=== PATIENT | male | born 1950 | race Caucasian/White ===

== ENCOUNTER 2023-01-06 07:06 | Outpatient (CLI) | payer OTHER, SELFPAY ==
--- NOTE | 2023-01-06 07:15 | CRLHL7_ITS ---
For Patients: As a result of the Century Cures Act, medical imaging exams and procedure reports are released immediately into your electronic medical record. You may view this report before your referring provider. If you have questions, please contact your health care provider. Indication: MENINGIOMA BRAIN F/U PITUITARY MENINGIOMA POST RADIATION Technique: High-resolution sagittal and coronal, pre and postcontrast T1 weighted sequences through the pituitary gland, axial diffusion, T2 FLAIR sequences are provided. 15 ml Dotarem gadolinium based IV contrast was administered. Comparison: 01/10/22 MRI Findings: Mild generalized parenchymal volume loss. The midline structures are centrally located with no evidence of shift. There are no suspicious intra or extra-axial fluid collections. No region of restricted diffusion. Stable T1 isointense T2 heterogeneous enhancing mass in the pituitary sella, extending along the tuberculum sella measuring up to 3.3 cm AP x 1.6 cm craniocaudal x 2.9 cm TR with likely invasion of the cavernous sinus. The pituitary gland cannot be discretely distinguished from the tumor. No evidence of ICA stenosis. Minimal left suprasellar extension. The infundibulum is midline. No mass effect on the optic chiasm. Expected flow voids within the cavernous carotids and basilar artery. Impression: 1. 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 No optic chiasm impingement. No definite encasement of or narrowing of the ICAs. 2. Stable mild parenchymal volume loss. No acute intracranial abnormality. Dictated by Bakari Stein MD @ 01/06/2023 11:35:44 AM (Electronically Signed)
== END 2023-01-06 07:07 | disposition home or self-care (01) ==
LOC: MRI 07:10
PROVIDERS: Visit Provider Physician Assistant
DX: D32.0 Benign neoplasm of cerebral meninges (principal)
CPT/HCPCS: 70553; A9575

== ENCOUNTER 2024-01-09 07:27 | Outpatient (CLI) | payer MEDICARE, SELFPAY ==
--- NOTE | 2024-01-09 07:15 | MR_ITS ---
Final Report Patient: SERAFIN PRAJAPATI Facility:?[facility] Patient ID:?[id number] Site Patient ID:?[id number]. Site :?[id number] Study:?MRI Head W/ and W/O Cont 20 CC DOATERM-01/09/2024 10:10:39 AM Ordering Physician:?TIMUR LEVINE Final Report: INDICATION: MENINGEOMA OF BRAIN Indication: Meningioma brain Technique: Multiplanar multisequence MRI brain obtained pre and postcontrast. A total of 20 mL Dotarem was administered IV for the exam. Comparison: MRI brain 01/06/2023, 01/10/2022 Findings: Overall stable appearance of the enhancing extra-axial lesion expanding the sella, obscuring the pituitary gland, and extending along the tuberculum sellae and planum sphenoidale, given differences in technique. Again noted is likely cavernous sinus invasion, better appreciated on previous dedicated pituitary protocol MRI exams. Overall appearance is not significantly changed over the interval. No acute/subacute ischemia, intracranial hemorrhage, or abnormal extra-axial fluid collection. No midline shift, hydrocephalus, or herniation. Mild generalized volume loss. Major intracranial vasculature is unremarkable for technique. Normal bone marrow signal. Mild mucosal thickening along the inferior maxillary sinuses and anterior ethmoid air cells. No significant mastoid effusion. Bilateral lens implants. Impression: 1. Overall stable appearance of the sella/tuberculum sellae meningioma. 2. No acute intracranial abnormality or significant interval change relative to 01/06/2023. 3. Mild generalized cerebral volume loss. Dictated by: Lacey Lombardi MD @ 01/13/2024 06:15:27 (Electronic Signature)
--- OUTSIDE RECORDS SUMMARY | 2024-01-09 07:34 | XMS_ITS | Continuity of Care Document ---
Author Name Unknown Organization [facility] Address [address] [place] [address] Phone Care Team Providers Care Tabular Typist Name Role Phone Staci Denise MD Unavailable Unavailable Allergies, Adverse Reactions, Alerts Substance Reaction Status Criticality No Known Allergies Active No Inform ation Medications Medication Instructions Dosage Effective Dates (start - stop) Status Comments LEVOTHYROXINE SODIUM (unknown strength) Not Available - Active METFORMIN HCL (unknown strength) Not Available - Active LISINOPRIL (unknown strength) Not Available - Active GABAPENTIN (unknown strength) Not Available - Active CITALOPRAM HBR (unknown strength) Not Available - Active ACETAMINOPHEN (unknown strength) Not Available - Active GLIPIZIDE (unknown strength) Not Available - Active Procedures Procedure Date Postop Followup Visit Lami For Excision Of Lesion, Lumbar (Cys t, Lipoma etc.) - PA Lami For Excision Of Lesion, Lumbar (Cys t, Lipoma etc.) Operating Microscope Followup Hospital Care, [facility] 2022 Office/Outpatient Visit,[facility] 2022 Advance Directives Directive Yes / No Effective Date File Name No Information Encounters Encounter Description Practice Location Reason(s) For Visit Diagnoses Date Provider Providers Copied on Encounter [facility], [address], [place], [id number], [place] tel:[phone] [facility] [place] No Information 3 Camelia Small. [facility], [address] [place] [address] [address], [place], [address], [place]. tel:[phone] [facility], [address], [place], [id number], [place] tel:[phone] [facility] - [place] Arthrodesis status 3 Camelia Small. [facility], [address], [place], [address], [place]. [phone] Referring Provider: Ricci Ramses V, [facility] [address], [place], [address]. tel:[phone] [facility], [address], [place], [place], [id number], [place] tel:[phone] [facility] No Information Sep-0 3 Roaring Riveremil Duran. [facility], [address], [place], [address], [place]. tel:[phone] Referring Provider: Ricci Ramses V, [facility] [address], [place], [address]. tel:[phone] [facility], [address], [place], [place], [id number], [place] tel:[phone] [facility] No Information Sep-0 3 Camelia Small. [facility], [address], [place], [address], [place]. [phone] Referring Provider: Ricci Ramses V, [facility] [address], [place], [address]. tel:[phone] Followup Hospital Care, Moderate [facility], [address], [place], [place], [id number], [place] tel:[phone] [facility] No Information Sep-0 3 Aydee Gomez. [facility], [address], [address], [place], [address], [place]. [phone] Referring Provider: Ricci Ramses V, [facility] [address], [place], [address]. 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 [facility], [address] [place] [address], [address], [place], [address], [place]. tel:[phone] Referring Provider: Ricci Pearce V, [facility] [address] [facility] [address], [place], [address]. tel:[phone] Family History Family Member Type Diagnosis Age At Onset No Information Payers Payer name Insurance type Covered green party ID Authoriza tilavinia(s) [employer] Medicare Gold Choice Mark [id number] Social History Type Description Quantity Date Captured Comments Alcohol Use Details Unknown Caffeine Use Details Unknown Tobacco Use Status No Information Smoking Status No Information Sex Male Chief Complaint And Reason For Visit No Information Reason For Referral Reason For Referral No Information History Of Present Illness Encounter Date Complaint History Of Prese nt Illness No Information Functional Status Date Functional Assessmen t No Information Instructions Date Instruction Additional Infor mation No Information Assessments Type Assessment Date No Information Patient Care Teams Name Effective Dates (start - stop) Status Members No Information
--- OUTSIDE RECORDS SUMMARY | 2024-01-09 07:35 | XMS_ITS | Encounter Summary ---
Author Name Unknown Organization [facility] Address [address] [place] [address] Care Team Providers Care Advertising Solicitor Name Role Phone Elsewhere, Pcp Primary Care Provider Unavailabl e Reason for Visit * Reason Comments Med Refill Encounter Details Date Type Department Care Team (Late st Contact Info) Description 12/09/2023 Refill Division of Endocrinology in [place], [place] [address] [place] [phone] Luly Melara M.B., B.Ch. [address] [place] [phone] Med Refill Social History Tobacco Use Types Packs/Day Years Used Date Smoking Tobacco: Former Cigarettes 0 12 0 11/24/1970 - 11/24/1982 Pipe Smokeless Tobacco: Never Alcohol Use Standard Drinks/Week Comments Yes 3 (1 standard drink = 0.6 oz pur e alcohol) Humiliation, Afraid, Rape, and Kick questionnair e Answer Date Recorded Within the last year, have y ou been afraid of your partner or ex-partner? No 10/11/2022 Within the last year, have y ou been humiliated or emotionally abused in other ways by your partner or ex-partner? No Within the last year, have y ou been kicked, hit, slapped, or otherwise physically hurt by your partner or ex-partner? No 10/11/2022 Within the last year, have y ou been raped or forced to have any kind of sexual activity by your partner or ex-partner? No 10/11/2022 Social Connection and Isolat ion Panel [NHANES] Answer Date Recorded In a typical week, how many times do you talk on the phone with family, friends, or neighbors? More than three times a week 10/11/2022 How often do you get togethe r with friends or relatives? Once a week 10/11/2022 How often do you attend chur or lutheran services? Never 10/11/2022 Do you belong to any clubs o r organizations such as scientologist groups, unions, fraternal or athletic groups, or school groups? Yes 10/11/2022 How often do you attend meet ings of the clubs or organizations you belong to? More than 4 times per year 10/11/2022 Are you , , di vorced, , never , or living with a partner? 10/11/2022 AUDIT-C Answer Date Recorded Q1: How often do you have a drink containing alc ohol? 2-4 times a month 10/11/2022 Q2: How many drinks containi ng alcohol do you have on a typical day when you are drinking? 1 or 2 10/11/2022 Q3: How often do you have si x or more drinks on one occasion? Never 10/11/2022 Overall Financial Resource Strain (CARDIA) Answe r Date Recorded How hard is it for you to pa y for the very basics like food, housing, medical care, and heating? Not hard at all 10/11/2022 [facility] - Occupational Stress Questionnaire Answer Date Recorded Do you feel stress - tense, restless, nervous, or anxious, or unable to sleep at night because your mind is troubled all the time - these days? Not at all 10/11/2022 Exercise Vital Sign Answer Date Recorde d On average, how many days pe r week do you engage in moderate to strenuous exercise (like a brisk walk)? 2 days 10/11/2022 On average, how many minutes do you engage in exercise at this level? 20 min 10/11/2022 Hunger Vital Sign Answer Date Recorded Within the past 12 months, y ou worried that your food would run out before you got the money to buy more. Never true 11/18/20 22 Within the past 12 months, t he food you bought just didn't last and you didn't have money to get more. Never true 10/11/2022 PRAPARE - Transportation Answer Date Re corded In the past 12 months, has l ack of transportation kept you from medical appointments or from getting medications? No 09/24 In the past 12 months, has l ack of transportation kept you from meetings, work, or from getting things needed for daily living? No 10/11/2022 Housing Stability Vital Sign Answer Bon e Recorded In the last 12 months, was t here a time when you were not able to pay the mortgage or rent on time? No 10/11/2022 In the last 12 months, how many places have you lived? 1 10/11/2022 In the last 12 months, was t here a time when you did not have a steady place to sleep or slept in a [place] [facility] [place] (including now)? No 10/11/2022 Nutrition Answer Date Recorded Nutrition: EVOO Fat Source Yes 10/11 On average, how many serving s of fruits and vegetables do you eat per day (serving size is equal to 1 cup or approximately the size of a tennis ball)? 0-1 10/11/2022 Dental Answer Date Recorded Dental: Regular Dentist Yes 01/10/20 Employment Answer Date Recorded Employment status Retired 10/11/2022 Education Answer Date Recorded What is the highest level of school you have completed or the highest degree you have received? Associate degree: occupational, technical, or vocational program 01/02/2020 Sex and Gender Information Value Date Recorded Sex Assigned at Male 05/13/2018 7:32 PM CDT Gender Identity Male 05/13/2018 7:32 PM CDT Sexual Orientation Straight 05/13/2018 7: 32 PM CDT documented as of this encounter Plan of Treatment Upcoming Encounters Date Type Department Care Team (Latest Contact Info) Description 01/12/2024 10:00 AM PROVIDER SCRIBE Clinical Communication Virtual Review in [place], [place] [address] [place] [address] 01/15/2024 11:30 AM PROVIDER SCRIBE Appointment Department of Radiation Oncology in [address] [phone] Donovan Betts M.D. [address] [place] [phone] documented as of this encounter Visit Diagnoses Not on filedocumented in this encounter Additional Health Concerns Assessment Noted Time PHQ-9 Depression Total Score: 1 12/24/19 17 3:11 PM PROVIDER SCRIBE documented as of this encounter Care Teams Advertising Solicitor Relationship Specialty Start Date End Date Elsewhere, Pcp PCP - General Internal Medicine 10/14/22 documented as of this encounter
--- OUTSIDE RECORDS SUMMARY | 2024-01-09 07:35 | XMS_ITS | Referral Summary ---
Author Name Unknown Organization [facility] Address [address] [place] [address] Care Team Providers Care Regulatory Affairs Coordinator Name Role Phone Elsewhere, Pcp Primary Care Provider Unavailabl e Source Comments Patient records contain information from all sites at [facility]. For routine questions regarding patient records, call [phone] during business hours, M-F 8:00 AM - 5:00 PM Central Time. Record requests for emergency care only can be directed to [phone] at any time.[facility] Encounters Date Type Department Care Team Description 12/09/2023 Refill Division of Endocrinology in [place], [place] [address] [place] [address] Luly Melara M.B., B.Ch. Med Refill 11/07/2023 Clinical Communication Department of Radiation Oncology in [place], [place] [address] [place] [phone] Donovan Betts M.D. from Last 3 Months Allergies No known active allergies Medications Medication Sig Dispensed Refills Start Date End Date Status dexamethasone (DECADRON) 4 mg/mL injection Inject 1 mL intramuscularly as directed. 0 01/06/2018 Active lisinopril (PRINIVIL,ZESTRI L) 10 mg tablet Take 1 tablet by mouth daily. 0 10/29/2016 Active albuterol (PROVENTIL HFA,VENTOLIN HFA) 90 mcg/actuation inhaler Inhale 1-2 puffs as needed. 0 01/08/2018 Active Accu-Chek Guide test strips strips USE 1 STRIP TO CHECK GLUCOSE ONCE DAILY DIRECTED 0 11/27/2020 Active metFORMIN (GLUCOPHAGE) 500 mg tablet Take 500 mg by mouth daily with breakfast. 0 09/13/2020 Active atorvastatin (LIPITOR) 40 mg tablet TAKE 1 TABLET BY MOUTH ONCE DAILY WITH EVENING MEAL 0 11/09/2020 Active citalopram (CeleXA) 20 mg tablet Take 20 mg by mouth daily. 0 10/20/2020 Active glipiZIDE (GLUCOTROL XL) 2.5 mg 24 hr tablet Take 2.5 mg by mouth daily. 0 08/29/2022 Active blood-glucose meter misc daily. 0 08/23/2020 Active hydrocortisone (CORTEF) 10 mg tablet Take 2 tablets (20 mg total) by mouth daily. Double dose in times of illness. 200 tabs for 90 day supply. 200 tablet 3 02/11/2023 Active testosterone (ANDROGEL) 20.25 mg/1.25 g actuation (1.62%) gelIndications:M ass Pituitary (HCC) APPLY 1 PUMP TOPICALLY ONCE DAILY 75 g 2 06/17/2023 Active levothyroxine (SYNTHROID, LEVOTHROID) 75 mcg tablet Take 1 tablet by mouth once daily 90 tablet 0 12/10/2023 Active Active Problems Problem Noted Date Diagnosed Date Meningioma Brain 11/28/2016 Mass Pituitary 10/31/2016 Social History Tobacco Use Types Packs/Day Years [...] 10/11/2022 How often do you attend chur ch or mormon services? Never 10/11/2022 Do you belong to any clubs o r organizations such as buddhism groups, unions, fraternal or athletic groups, or [...] and heating? Not hard at all 10/11/2022 [facility] - Occupational Stress [...] the money to buy more. Never true 10/11/20 22 Within the past 12 months, t [...] place to sleep or slept in a half-way (including now)? No 10/11/2022 Nutrition Answer Date [...] Orientation Straight 05/13/2018 7: 32 PM CDT Last Filed Vital Signs Vital Sign Reading Time Taken Comments Blood Pressure 114/65 01/10/2023 3:14 PM CIGAR SORTER Pulse 72 01/10/2023 3:14 PM CIGAR SORTER Temperature 36.3 ??C (97.3 ??F) 01/10/2023 3:14 PM CS T Respiratory Rate - - Oxygen Saturation - - Inhaled Oxygen Concentration - - Weight 102 kg (225 lb 1.4 oz) 01/10/2023 3:14 PM CIGAR SORTER Height 181.1 cm (5' 11.3) 10/15/2022 11:[address] Body Mass Index 31.13 10/15/2022 11:19 AM CIGAR SORTER Plan of Treatment Upcoming Encounters Date Type Department Care Team (Latest Contact Info) Description 01/12/2024 10:00 AM CIGAR SORTER Clinical Communication Virtual Review in [place], [place] [address] [place] [address] 01/15/2024 11:30 AM CIGAR SORTER Appointment Department of Radiation Oncology in [place], [place] [address] [place] [phone] Donovan Betts M.D. [address] [place] [address] Medical Devices Implanted Type Area Signal Inspector Device Identifier Shelf Expiration Date Model / Serial / Lot Conversions - Default Historical Implant Device Implanted:06/30 (Quantity not on file) Ocular (Eye) Implant Right: Eye Description:Body Location - Eye R. Device Status Text - OcularImp. may 2017. Care Teams Regulatory Affairs Coordinator Relationship Specialty Start Date End Date Elsewhere, Pcp PCP - General Internal Medicine 10/14/22
--- OUTSIDE RECORDS SUMMARY | 2024-01-09 07:35 | XMS_ITS | Encounter Summary ---
Author Name Unknown Organization [facility] Address [address] [place] [address] Care Team Providers Care Qa Automation Architect Name Role Phone Elsewhere, Pcp Primary Care Provider Unavailabl e Reason for Visit * Reason Comments Med Refill Encounter Details Date Type Department Care Team (Late st Contact Info) Description 06/16/2023 Refill Division of Endocrinology in [place], [place] [address] [place] [phone] Luly Melara M.B., B.Ch. [address] [place] [phone] Med Refill Social History Tobacco Use Types [...] How often do you attend chur or methodist services? Never 10/11/2022 Do you belong to any clubs o r organizations such as latter day groups, unions, fraternal or athletic groups, or [...] and heating? Not hard at all 10/11/2022 [facility] - Occupational [...] place to sleep or slept in a fci (including now)? No 10/11/2022 Nutrition Answer Date [...] (Latest Contact Info) Description 01/12/2024 10:00 AM ADVENTURE THERAPIST Clinical Communication Virtual Review in [place], [place] [address] [place] [address] 01/15/2024 11:30 AM ADVENTURE THERAPIST Appointment Department of Radiation Oncology in [address] [phone] Donovan Betts M.D. [address] [place] [address] documented as of this encounter Visit Diagnoses Diagnosis Mass Pituitary (HCC) documented in this encounter Additional Health Concerns Assessment Noted Time PHQ-9 Depression Total Score: 1 12/24/19 17 3:11 PM ADVENTURE THERAPIST documented as of this encounter Care Teams Qa Automation Architect Relationship Specialty Start Date End Date Elsewhere, Pcp PCP - General Internal Medicine 10/14/22 documented as of this encounter
--- OUTSIDE RECORDS SUMMARY | 2024-01-09 07:35 | XMS_ITS | Encounter Summary ---
Author Name Unknown Organization [facility] Address [address] [place] [address] Care Team Providers Care Digester Hand Name Role Phone Elsewhere, Pcp Primary Care Provider Unavailabl e Encounter Details Date Type Department Care Team (Late st Contact Info) Description 06/13/2023 Clinical Communication Division of Endocrinology in [place], [place] [address] [place] [phone] Luly eMlara M.B., B.Ch. [address] [place] [address] Social History Tobacco Use Types Packs/Day Years [...] often do you attend chur ch or pentecostal services? Never 10/11/2022 Do you belong to any clubs o r organizations such as christian groups, unions, fraternal or athletic groups, or [...] and heating? Not hard at all 10/11/[address] [facility]ational Stress Questionnaire Answer Date [...] place to sleep or slept in a prison (including now)? No 10/11/2022 Nutrition Answer Date [...] (Latest Contact Info) Description 01/12/2024 10:00 AM BASEBALL SCOUT Clinical Communication Virtual Review in [place], [place] [address] [place] [address] 01/15/2024 11:30 AM BASEBALL SCOUT Appointment Department of Radiation Oncology in [address] [phone] Donovan Betts M.D. [address] [place] [phone] documented as of this encounter Visit Diagnoses Not on filedocumented in this encounter Additional Health Concerns Assessment Noted Time PHQ-9 Depression Total Score: 1 12/24/19 17 3:11 PM BASEBALL SCOUT documented as of this encounter Care Teams Digester Hand Relationship Specialty Start Date End Date Elsewhere, Pcp PCP - General Internal Medicine 10/14/22 documented as of this encounter
--- OUTSIDE RECORDS SUMMARY | 2024-01-09 07:35 | XMS_ITS | Continuity of Care Document ---
Author Name Unknown Organization [facility] Address [address] [place] [id number] Care Team Providers Care Tube Skiver Name Role Phone Elsewhere, Pcp Primary Care Provider Unavailabl e Source Comments Patient records contain information from all sites at [facility]. For routine questions regarding patient records, call [phone] during business hours, M-F 8:00 AM - 5:00 PM Central Time. Record requests for emergency care only can be directed to [phone] at any time.[facility] Encounters Date Type Department Care Team Description 12/09/2023 Refill Division of Endocrinology in [place], [place] [address] [place] [phone] Luly Melara M.B., B.Ch. Med Refill 11/07/2023 Clinical Communication Department of Radiation Oncology in [place], [place] [address] [place] [phone] Donovan Betts M.D. 06/16/2023 Refill Division of Endocrinology in [place], [place] [address] [place] [phone] Luly Melara M.B., B.Ch. Med Refill 06/13/2023 Clinical Communication Division of Endocrinology in [place], [place] [address] [place] [phone] Luly Melara M.B., B.Ch. 02/09/2023 Refill Division of Endocrinology in [place], [place] [address] [place] [phone] Shawna Somers M.D. Med Refill 01/10/2023 2:28 PM APARTMENT MAINTENANCE SUPERVISOR - 01/17/2023 3:20 PM APARTMENT MAINTENANCE SUPERVISOR Hospital Encounter Department of Radiation Oncology in [address] [address] Donovan Betts M.D. Meningioma Brain (HCC) (Primary Dx) 01/08/2023 10:00 AM APARTMENT MAINTENANCE SUPERVISOR Clinical Communication Virtual Review in [place], [place] [address] [place] [address] Pre-visit Intake 12/16/2022 Refill Division of Endocrinology in [place], [place] [address] [place] [phone] Luly Melara M.B., B.Ch. Med Refill 10/30/2022 Refill Division of Endocrinology in [place], [place] [address] [place] [phone] Luly Melara M.B., B.Ch. Med Refill 10/23/2022 Clinical Communication Department of Radiation Oncology in [place], [place] [address] [place] [phone] Donovan Betts M.D. 10/15/2022 11:37 AM APARTMENT MAINTENANCE SUPERVISOR - 10/15/2022 11:59 PM APARTMENT MAINTENANCE SUPERVISOR Hospital Encounter Department of Laboratory Medicine and Pathology, [place], [place] [address] [place] [phone] Luly Melara M.B., B.Ch. Meningioma Brain (HCC) Discharge Disposition: Home or Self Care 10/15/2022 7:35 AM APARTMENT MAINTENANCE SUPERVISOR - 10/15/2022 11:36 AM APARTMENT MAINTENANCE SUPERVISOR Hospital Encounter Department of Laboratory Medicine and Pathology, [place], [place] [address] [place] [phone] Luly Melara M.B., B.Ch. Mass Pituitary (HCC) Discharge Disposition: Home or Self Care 10/15/2022 12:00 PM APARTMENT MAINTENANCE SUPERVISOR Office Visit Division of Endocrinology in [place], [place] [address] [place] [phone] Luly Melara M.B., B.Ch. Mass Pituitary (HCC) (Primary Dx); Meningioma Brain (HCC) 10/14/2022 7:00 AM [facility] Clinical Communication Virtual Review in [place], [place] 200 [place] [address] Pre-visit Intake 10/09/2022 Refill Division of Endocrinology in [place], [place] [address] [place] [phone] Luly Melara M.B., B.Ch. Med Refill; testosterone 07/13/2022 Refill Division of Endocrinology in [place], [place] [address] [place] [phone] Shawna Somers M.D. Med Refill 03/12/2022 Clinical Communication Division of Endocrinology in [place], [place] [address] [place] [phone] Luly Melara M.B., B.Ch. Close Letter 01/14/2022 2:36 PM APARTMENT MAINTENANCE SUPERVISOR - 01/14/2022 3:19 PM [facility] Hospital Encounter Department of Radiation Oncology in [address] [phone] Donovan Betts M.D. Meningioma Brain (HCC) (Primary Dx) 11/28/2021 Orders Only Pharmacy [place] [phone] Elsewhere, Pcp 11/28/2021 Orders Only Pharmacy [place] [phone] Elsewhere, Pcp 11/26/2021 Refill Division of Endocrinology in [place], [place] [address] [place] [phone] Luly Melara M.B., B.Ch. Med Refill 11/26/2021 Refill Division of Endocrinology in [place], [place] [address] [place] [phone] Luly Melara M.B., B.Ch. Med Refill 10/25/2021 Clinical Communication Department of Radiation Oncology in [address] [phone] Donovan Betts M.D. 08/21/2021 Orders Only RST PCP HLTH MNT Yamilet Seaman M.D. 08/15/2021 Refill Division of Endocrinology in [place], [place] [address] [place] [address] Luly Melara M.B., B.Ch. Med Refill 08/13/2021 Refill Division of Endocrinology in [place], [place] [address] [place] [phone] Luly Melara M.B., B.Ch. Med Refill (euthrox 88 mcg) 03/31/2021 Refill Division of Endocrinology in [place], [place] [address] [place] [address] Luly Melara M.B., B.Ch. Med Refill 01/22/2021 Orders Only Pharmacy Prior [place] [phone] Litzy Ley 01/18/2021 Orders Only Pharmacy Prior [place] [phone] Alicia Whitaker 01/09/2021 Orders Only Division of Endocrinology in [place], [place] [address] [place] [phone] Luly Melara M.B., B.Ch. 01/08/2021 1:20 PM APARTMENT MAINTENANCE SUPERVISOR Ancillary Procedure Department of Radiology in [place], [place] [address] [place] [address] Lisette Benites P.A.-C., M.S. Meningioma Brain (HCC) 01/08/2021 2:37 PM APARTMENT MAINTENANCE SUPERVISOR - 01/08/2021 4:06 PM APARTMENT MAINTENANCE SUPERVISOR Hospital Encounter Department of Radiation Oncology in [place], [place] [address] [place] [phone] Donovan Betts M.D. Meningioma Brain (HCC) (Primary Dx); Mass Pituitary (HCC) 01/06/2021 Refill Division of Endocrinology in [place], [place] [address] [place] [address] Luly Melara M.B., B.Ch. Med Refill 12/05/2020 7:00 AM APARTMENT MAINTENANCE SUPERVISOR Lab Department of Laboratory Medicine and Pathology, [facility] in [place], [place] [address] [place] [phone] Luly Melara M.B., B.Ch. Mass Pituitary (HCC) 12/05/2020 12:00 PM APARTMENT MAINTENANCE SUPERVISOR Office Visit Division of Endocrinology in [place], [place] [address] [place] [phone] uLly Melara M.B., B.Ch. Mass Pituitary (HCC) 12/04/2020 Clinical Communication Division of [facility] Internal Medicine, [facility] in [place], [place] [address] [place] [phone] Kayla Kamara APRN, C.N.P., D.N.P. JAIDEN Nurse Line 10/26/2020 Clinical Communication Department of Radiation Oncology in [place], [place] [address] [place] [address] Ariane Rodriguez 10/18/2020 Refill Division of Endocrinology in [address] [phone] Luly eMlara M.B., B.Ch. Med Refill 09/03/2020 Refill Division of Endocrinology in [place], [place] [address] [place] [phone] Luly Melara M.B., B.Ch. Med Refill 06/14/2020 Refill Division of Endocrinology in [place], [place] [address] [place] [phone] Luly Melara M.B., B.Ch. Med Refill 03/03/2020 Refill Division of Endocrinology in [place], [place] [address] [place] [phone] Luly Melara M.B., B.Ch. Med Refill 03/03/2020 Refill Division of Endocrinology in [place], [place] [address] [place] [phone] Audrey Morales M.D. Med Refill 01/06/2020 3:55 PM APARTMENT MAINTENANCE SUPERVISOR Ancillary Procedure Department of Radiology in [place], [place] [address] [place] [phone] Donovan Betts M.D. Meningioma Brain (HCC) 01/06/2020 1:51 PM APARTMENT MAINTENANCE SUPERVISOR - 01/06/2020 4:02 PM APARTMENT MAINTENANCE SUPERVISOR Hospital Encounter Department of Radiation Oncology in [place], [place] [address] [place] [phone] Donovan Betts M.D. Meningioma Brain (HCC) (Primary Dx); Mass Pituitary (HCC) 10/12/2019 6:23 AM APARTMENT MAINTENANCE SUPERVISOR - 10/12/2019 11:59 PM APARTMENT MAINTENANCE SUPERVISOR Hospital Encounter Department of Laboratory Medicine and Pathology, [place], [place] [address] [place] [phone] Luly Melara M.B., B.Ch. Meningioma Brain (HCC) Discharge Disposition: Home or Self Care 08/24/2019 Orders Only Department of Radiation Oncology in [place], [place] [address] [place] [phone] Donovan Betts M.D. Meningioma Brain (HCC) (Primary Dx) 08/12/2019 Orders Only Division of Endocrinology in [place], [place] [address] [place] [phone] Luly Melara M.B., B.Ch. Meningioma Brain (HCC) (Primary Dx) 08/09/2019 4:30 PM CDT Ancillary Procedure Department of Radiology in [place], [place] [address] [place] [phone] Audrey Morales M.D. Mass Suprasellar 08/09/2019 11:58 AM CDT - 08/09/2019 11:59 PM CDT Hospital Encounter Department of Laboratory Medicine and Pathology, [facility], in [place], [place] [address] [place] [address] Audrey Morales M.D. Testosterone Low Discharge Disposition: Home or Self Care 08/09/2019 6:40 AM CDT - 08/09/2019 11:57 AM CDT Hospital Encounter Department of Laboratory Medicine and Pathology, [facility], in [place], [place] [address] [place] [address] Luly Melara M.B., B.Ch. Meningioma Brain (HCC) Discharge Disposition: Home or Self Care 08/09/2019 11:00 AM CDT Office Visit Division of Endocrinology in [place], [place] [address] [place] [phone] Luly Melara M.B., B.Ch. Mass Suprasellar (Primary Dx); Testosterone Low; Insufficiency Adrenal Secondary (HCC); Hypothyroidism Secondary 06/28/2019 Refill Division of Endocrinology in [place], [place] [address] [place] [phone] Luly Melara M.B., B.Ch. Med Refill 06/26/2019 Refill Division of Endocrinology in [place], [place] [address] [place] [phone] Luly Melara M.B., B.Ch. Med Refill 06/23/2019 Clinical Communication Division of Endocrinology in [place], [place] [address] [place] [phone] Luly Melara M.B., B.Ch. 06/16/2019 Orders Only Division of Endocrinology in [place], [place] [address] [place] [phone] uLly Melara M.B., B.Ch. Meningioma Brain (HCC) (Primary Dx) 06/15/2019 Clinical Communication Division of Endocrinology in [place], [place] [address] [place] [phone] Luly Melara M.B., B.Ch. Pre-visit Testing Orders 04/26/2019 Clinical Communication Department of Radiation Oncology in [place], [place] [address] [place] [address] Ariane Rodriguez 04/15/2019 Clinical Communication Division of Endocrinology in [place], [place] [address] [place] [phone] Luly Melara M.B., B.Ch. medication 02/02/2019 Clinical Communication Division of Endocrinology in [place], [place] [address] [place] [address] Luly Melara M.B., B.Ch. 01/18/2019 Refill Division of Endocrinology in [place], [place] [address] [place] [address] Luly Melara M.B., B.Ch. Med Refill 12/28/2018 Orders Only [facility] [place] [address], [address] [place] [phone] Hector Morse Jr., M.D. 12/25/2018 Clinical Communication [facility] [place] [address], [address] [place] [phone] Luly Melara M.B., B.Ch. Rx Prior Authorization (DENIAL OF TESTOSTERONE GEL ) 12/25/2018 Orders Only [facility] [place] [address], [address] [place] [phone] Darnell Meredith M.D. 12/24/2018 Clinical Communication Division of Endocrinology in [place], [place] [address] [place] [address] Luly Melara M.B., B.Ch. Testosterone denial 12/02/2018 Clinical Communication Department of Radiation Oncology in [place], [place] [address] [place] [phone] Donovan Betts M.D. Results 11/30/2018 5:30 PM APARTMENT MAINTENANCE SUPERVISOR Ancillary Procedure Department of Radiology in [place], [place] [address] [place] [address] Donovan Betts M.D. Meningioma Brain (HCC) 11/30/2018 Orders Only Department of Radiation Oncology in [place], [place] [address] [place] [address] Donovan Betts M.D. Meningioma Brain (HCC) (Primary Dx) 11/16/2018 Refill Division of Endocrinology in [place], [place] [address] [place] [address] Luly Melara M.B., B.Ch. Med Refill 11/10/2018 Refill Division of Endocrinology in [place], [place] [address] [place] [address] Luly Melara M.B., B.Ch. Med Refill 06/21/2018 Refill Division of Endocrinology in [place], [place] [address] [place] [address] Luly Melara M.B., B.Ch. Med Refill 05/18/2018 12:10 PM CDT Ancillary Procedure Department of Radiology in [place], [place] [address] [place] [address] Donovan Betts M.D. Meningioma Brain (HCC) 05/18/2018 10:42 AM CDT - 05/18/2018 12:12 PM CDT Hospital Encounter Department of Radiation Oncology in [address] [phone] Donovan Betts M.D. Meningioma Brain (HCC) (Primary Dx); Malignant Neoplasm Of Brain (HCC) 04/08/2018 Abstract DATA ABSTRACTION Ruth Vasquez D.N.P., R.N. 03/13/2018 Orders Only Department of Radiation Oncology in [address] [phone] Donovan Betts M.D. Tumor Cerebral Meninges Benign (HCC) Allergies No known active allergies Medications Medication [...] Date Meningioma Brain 11/28/2016 Mass Pituitary 10/31/2016 Family History Medical History Relation Name Comments Alcohol abuse Father jayden closet drinker Diabetes Mother yesenia type 2 Obesity Mother yesenia Other cancer Mother yesenia bladder Relation Name Status Comments Father jayden Mother yesenia Social History Smoking Status as of 01/09/2024 Tobacco Use Types Packs/Day Years Used Date Smoking Tobacco: Never Assessed Humiliation, Afraid, Rape, and Kick questionnair e [...] How often do you attend chur or mu-ism services? Never 10/11/2022 Do you belong to any clubs o r organizations such as baptism groups, unions, fraternal or athletic groups, or [...] and heating? Not hard at all 10/11/2022 [facility] - Occupational Stress Questionnaire Answer Date [...] money to buy more. Never true 10/11/20 Within the past 12 months, t he [...] place to sleep or slept in a snf (including now)? No 10/11/2022 Nutrition Answer Date [...] Comments Blood Pressure 114/65 01/10/2023 3:14 PM APARTMENT MAINTENANCE SUPERVISOR Pulse 72 01/10/2023 3:14 PM APARTMENT MAINTENANCE SUPERVISOR Temperature 36.3 ??C (97.3 ??F) 01/10/2023 3:14 PM CS T Respiratory Rate - - Oxygen Saturation - - Inhaled Oxygen Concentration - - Weight 102 kg (225 lb 1.4 oz) 01/10/2023 3:14 PM APARTMENT MAINTENANCE SUPERVISOR Height 181.1 cm (5' 11.3) 10/15/2022 11:19 AM Edi Body Mass Index 31.13 10/15/2022 11:19 AM APARTMENT MAINTENANCE SUPERVISOR Plan of Treatment Upcoming Encounters Date Type Department Care Team (Latest Contact Info) Description 01/12/2024 10:00 AM APARTMENT MAINTENANCE SUPERVISOR Clinical Communication Virtual Review in [place], [place] [address] [place] [address] 01/15/2024 11:30 AM APARTMENT MAINTENANCE SUPERVISOR Appointment Department of Radiation Oncology in [place], [place] [address] [place] [address] Donovan Betts M.D. [address] [place] [address] Medical Devices Implanted Type Area Forest Fire Prevention Manager Device Identifier Shelf Expiration Date Model / Serial / Lot Conversions - Default Historical Implant Device Implanted:06/30 (Quantity not on file) Ocular (Eye) Implant Right: Eye Description:Body Location - Eye R. Device Status Text - OcularImp. may 2017. Procedures Procedure Name Priority Date/Time Associated Diagnosis Comments OUTSIDE MR NEURO Routine 01/06/2023 7:25 AM APARTMENT MAINTENANCE SUPERVISOR T4 (THYROXINE), FREE, S Routine 10/15/2022 11:46 AM APARTMENT MAINTENANCE SUPERVISOR Meningioma Brain (HCC) TESTOSTERONE, TOT AND FR, S Routine 10/15/2022 11:46 AM APARTMENT MAINTENANCE SUPERVISOR Meningioma Brain (HCC) CBC WITHOUT DIFFERENTIAL, B Routine 10/15/2022 7:43 AM APARTMENT MAINTENANCE SUPERVISOR Mass Pituitary (HCC) PROSTATE-SPECIFIC AG (PSA) SCRN, S Routine 10/15/2022 7:43 AM APARTMENT MAINTENANCE SUPERVISOR Mass Pituitary (HCC) OUTSIDE MR NEURO Routine 01/10/2022 2:00 PM APARTMENT MAINTENANCE SUPERVISOR INTERPRETATION OF OUTSIDE MR HEAD RAD - Routine (most inpatients and all outpatients) 01/08/2021 1:28 PM APARTMENT MAINTENANCE SUPERVISOR Meningioma Brain (HCC) OUTSIDE MR NEURO Routine 01/04/2021 10:10 AM APARTMENT MAINTENANCE SUPERVISOR PROSTATE-SPECIFIC AG (PSA) SCRN, S Routine 12/05/2020 7:01 AM APARTMENT MAINTENANCE SUPERVISOR Mass Pituitary (HCC) CBC WITHOUT DIFFERENTIAL, B Routine 12/05/2020 7:01 AM APARTMENT MAINTENANCE SUPERVISOR Mass Pituitary (HCC) T4 (THYROXINE), FREE, S Routine 12/05/2020 7:01 AM APARTMENT MAINTENANCE SUPERVISOR Mass Pituitary (HCC) TESTOSTERONE, TOT AND BIOAVAILABLE, S Routine 12/05/2020 7:01 AM APARTMENT MAINTENANCE SUPERVISOR Mass Pituitary (HCC) INTERPRETATION OF OUTSIDE MR HEAD RAD - Routine (most inpatients and all outpatients) 01/06/2020 3:56 PM APARTMENT MAINTENANCE SUPERVISOR Meningioma Brain (HCC) OUTSIDE MR NEURO Routine 01/03/2020 10:20 AM APARTMENT MAINTENANCE SUPERVISOR TESTOSTERONE, TOT AND BIOAVAILABLE, S Routine 11/01/2019 11:27 AM APARTMENT MAINTENANCE SUPERVISOR Meningioma Brain (HCC) INTERPRETATION OF OUTSIDE MR HEAD RAD - Routine (most inpatients and all outpatients) 08/10/2019 7:50 AM CDT Mass Suprasellar CBC WITHOUT DIFFERENTIAL, B Routine 08/09/2019 12:17 PM CDT Testosterone Low CORTISOL, S Routine 08/09/2019 6:47 AM CDT Meningioma Brain (HCC) THYROID-STIMULATING HORMONE-SENSITIVE (S-TSH) Routine 08/09/2019 6:47 AM CDT Meningioma Brain (HCC) T4 (THYROXINE), FREE, S Routine 08/09/2019 6:47 AM CDT Meningioma Brain (HCC) INSULIN-LIKE GROWTH FACTOR 1, S Routine 08/09/2019 6:46 AM CDT Meningioma Brain (HCC) TESTOSTERONE, TOT AND BIOAVAILABLE, S Routine 08/09/2019 6:46 AM CDT Meningioma Brain (HCC) OUTSIDE MR NEURO Routine 06/08/2019 10:55 AM CDT INTERPRETATION OF OUTSIDE MR HEAD RAD - Routine (most inpatients and all outpatients) 12/01/2018 7:46 AM APARTMENT MAINTENANCE SUPERVISOR Meningioma Brain (HCC) OUTSIDE MR NEURO Routine 11/30/2018 10:15 AM APARTMENT MAINTENANCE SUPERVISOR INTERPRETATION OF OUTSIDE MR HEAD RAD - Routine (most inpatients and all outpatients) 05/18/2018 3:08 PM CDT Meningioma Brain (HCC) OUTSIDE MR NEURO Routine 05/13/2018 9:15 AM CDT OUTSIDE OTHER Routine 11/11/2017 1:15 PM APARTMENT MAINTENANCE SUPERVISOR INTERPRETATION OF OUTSIDE MR HEAD Routine 06/30/2017 11:52 AM CDT T4 (THYROXINE), FREE, S Routine 06/30/2017 7:09 AM CDT TESTOSTERONE, TOT AND BIOAVAILABLE, S Routine 06/30/2017 7:09 AM CDT CBC WITH DIFFERENTIAL, B Routine 06/30/2017 7:09 AM CDT PROSTATE-SPECIFIC AG (PSA) SCRN, S Routine 06/30/2017 7:09 AM CDT OUTSIDE MR NEURO Routine 06/23/2017 10:25 AM CDT TESTOSTERONE, TOT AND BIOAVAILABLE, S Routine 04/15/2017 8:02 AM CDT INTERPRETATION OF OUTSIDE MR HEAD Routine 03/20/2017 3:41 PM CDT OUTSIDE MR NEURO Routine 03/18/2017 1:22 PM CDT OUTSIDE MR NEURO Routine 03/18/2017 1:22 PM CDT T4 (THYROXINE), FREE, S Routine 02/11/2017 7:25 AM CDT TESTOSTERONE, TOT AND BIOAVAILABLE, S Routine 02/11/2017 7:25 AM CDT T4 (THYROXINE), FREE, S Routine 12/23/2016 10:06 AM APARTMENT MAINTENANCE SUPERVISOR TESTOSTERONE, TOT AND BIOAVAILABLE, S Routine 12/23/2016 10:06 AM APARTMENT MAINTENANCE SUPERVISOR OUTSIDE MR NEURO Routine 11/28/2016 1:44 PM APARTMENT MAINTENANCE SUPERVISOR PROSTATE-SPECIFIC AG (PSA) SCRN, S Routine 11/08/2016 10:42 AM APARTMENT MAINTENANCE SUPERVISOR CORTISOL, S Routine 11/08/2016 10:42 AM APARTMENT MAINTENANCE SUPERVISOR T4 (THYROXINE), FREE, S Routine 11/08/2016 10:42 AM APARTMENT MAINTENANCE SUPERVISOR LUTEINIZING HORMONE (LH), S Routine 11/08/2016 10:42 AM APARTMENT MAINTENANCE SUPERVISOR FOLLICLE-STIM HORMONE (FSH), S Routine 11/08/2016 10:42 AM APARTMENT MAINTENANCE SUPERVISOR CALCIUM, TOT, S/P Routine 11/08/2016 10:42 AM APARTMENT MAINTENANCE SUPERVISOR TESTOSTERONE, TOT AND BIOAVAILABLE, S Routine 11/08/2016 10:41 AM APARTMENT MAINTENANCE SUPERVISOR INSULIN-LIKE GROWTH FACTOR 1, S Routine 11/08/2016 10:41 AM APARTMENT MAINTENANCE SUPERVISOR ACTH, P Routine 11/08/2016 10:41 AM APARTMENT MAINTENANCE SUPERVISOR CT ORBITS AND SELLA WITHOUT IV CONTRAST Routine 11/07/2016 9:07 AM APARTMENT MAINTENANCE SUPERVISOR HEMOGLOBIN A1C, B Routine 11/05/2016 9:3 0 AM APARTMENT MAINTENANCE SUPERVISOR CORTISOL, S Routine 11/05/2016 9:30 AM APARTMENT MAINTENANCE SUPERVISOR PRL, MACROADENOMA Routine 11/05/2016 9:3 0 AM APARTMENT MAINTENANCE SUPERVISOR MR BRAIN WITHOUT AND WITH IV CONTRAST Routine 11/01/2016 3:27 PM APARTMENT MAINTENANCE SUPERVISOR MYOMARKER 3 PROFILE Routine 10/31/2016 2 :35 PM APARTMENT MAINTENANCE SUPERVISOR ANTI-HMGCR AB - SENT OUT LAB Routine 10/31/2016 2:35 PM APARTMENT MAINTENANCE SUPERVISOR MR BRAIN WITHOUT IV CONTRAST Routine 10/30/2016 8:35 PM APARTMENT MAINTENANCE SUPERVISOR DX CHEST AP OR PA AND LATERAL 2 VIEWS Routine 10/30/2016 9:21 AM APARTMENT MAINTENANCE SUPERVISOR EMG Routine 10/30/2016 7:30 AM APARTMENT MAINTENANCE SUPERVISOR THYROID FUNCTION CASCADE, S Routine 10/29/2016 4:11 PM APARTMENT MAINTENANCE SUPERVISOR CREATINE KINASE (CK), S Routine 10/29/2016 4:11 PM APARTMENT MAINTENANCE SUPERVISOR ASPARTATE AMINOTRANSFERASE (AST), S/P Routine 10/29/2016 4:11 PM APARTMENT MAINTENANCE SUPERVISOR FOLATE, S Routine 10/29/2016 4:11 PM APARTMENT MAINTENANCE SUPERVISOR AB TO EXTRACTABLE NUCLEAR AG EVAL, S Routine 10/29/2016 4:11 PM APARTMENT MAINTENANCE SUPERVISOR ANCA VASCULITIS PANEL, S Routine 10/29/2016 4:11 PM APARTMENT MAINTENANCE SUPERVISOR CONNECTIVE TISSUE DISEASE CASCADE, IRINA, S Routine 10/29/2016 4:11 PM APARTMENT MAINTENANCE SUPERVISOR ALKALINE PHOSPHATASE, S/P Routine 10/29/2016 4:11 PM APARTMENT MAINTENANCE SUPERVISOR ALANINE AMINOTRANSFERASE (ALT), S/P Routine 10/29/2016 4:11 PM APARTMENT MAINTENANCE SUPERVISOR HIV-1/-2 AG AND AB SCREEN Routine 10/29/2016 4:11 PM APARTMENT MAINTENANCE SUPERVISOR PERNICIOUS ANEMIA CASCADE, S Routine 10/29/2016 4:10 PM APARTMENT MAINTENANCE SUPERVISOR PROTHROMBIN TIME (PT), P Routine 10/29/2016 4:10 PM APARTMENT MAINTENANCE SUPERVISOR SEDIMENTATION RATE, B Routine 10/29/2016 4:10 PM APARTMENT MAINTENANCE SUPERVISOR CBC WITH DIFFERENTIAL, B Routine 10/29/2016 4:10 PM APARTMENT MAINTENANCE SUPERVISOR Results * MR head/brain wo/w con-Outside MR Neuro (01/06/2023 7:25 AM APARTMENT MAINTENANCE SUPERVISOR) Only the most recent of11 resultswithin the time period is included. 01/06/2023 7:24 AM APARTMENT MAINTENANCE SUPERVISOR Narrative IIMS - 01/06/2023 9:18 AM APARTMENT MAINTENANCE SUPERVISOR This order has been created and auto-finalized to support the import of outside images. If available, original interpretation can be found on the Media Tab in Chart Review, in Document Viewer, or as an image in QREADS. If a re-interpretation or overread is required please follow defined workflow. ?? Provider Not In System IMG MRI PROCEDURE S IINJ NA * Testosterone, Total and Free (10/15/2022 11:46 AM APARTMENT MAINTENANCE SUPERVISOR) Testosterone, Free, S 7.55 3.28 - 12.2 ng/dL 10/19/2022 7:38 AM APARTMENT MAINTENANCE SUPERVISOR [facility] Comment: ----ADDITIONAL INFORMATION---- This test was developed and its performance characteristics determined by [facility] in a manner consistent with CLIA requirements. This test has not been cleared or approved by the U.S. Food and Drug Administration. Testosterone, Total by Mass Spectrometry, Serum 254 240 - 950 ng/dL 10/16/2022 5:39 PM APARTMENT MAINTENANCE SUPERVISOR [facility] Comment: ----ADDITIONAL INFORMATION---- Testing performed by Liquid Chromatography-Tandem Mass Spectrometry (LC-MS/MS). This test was developed and its performance characteristics determined by [facility] in a manner consistent with CLIA requirements. This test has not been cleared or approved by the U.S. Food and Drug Administration. Blood (Blood, Venous) 10/15/2022 11:46 AM APARTMENT MAINTENANCE SUPERVISOR 10/16/2022 6:13 AM APARTMENT MAINTENANCE SUPERVISOR Luly Blood, B.Ch. LAB BLOOD NON ADD-ON Performing Organization Address City/[facility] Co de Phone Number [facility] [address] [place] [address] [facility] [address] [place] [address] * T4 (Thyroxine), Free (10/15/2022 11:46 AM APARTMENT MAINTENANCE SUPERVISOR) Only the most recent of7 resultswithin the time period is included. T4 (Thyroxine), Free, S 1.2 0.9 - 1.7 ng/dL 10/15/2022 12:50 PM APARTMENT MAINTENANCE SUPERVISOR DT Blood (Blood, Venous) 10/15/2022 11:46 AM APARTMENT MAINTENANCE SUPERVISOR 10/15/2022 12:24 PM APARTMENT MAINTENANCE SUPERVISOR Luly Blood, B.Ch. LAB BLOOD ADD-ON Performing Organization Address [facility] Co de Phone Number [facility] [address] [place] [address], [facility] [address] [place] [address] * PSA (Prostate-Specific Antigen) Screen (10/15/2022 7:43 AM APARTMENT MAINTENANCE SUPERVISOR) Only the most recent of4 resultswithin the time period is included. Prostate-Specific Ag 0.37 <=6.5 ng/mL 10/15/2022 8:50 AM APARTMENT MAINTENANCE SUPERVISOR DTL Comment: ----ADDITIONAL INFORMATION---- The testing method is an electrochemiluminescence assay manufactured by [employer] and performed on the Modular or Vamshi system. Values obtained with different assay methods or kits may be different and cannot be used interchangeably. Test results cannot be interpreted as absolute evidence for the presence or absence of malignant disease. Blood (Blood, Venous) 10/15/2022 7:43 AM APARTMENT MAINTENANCE SUPERVISOR 10/15/2022 8:20 AM APARTMENT MAINTENANCE SUPERVISOR Luly Blood, B.Ch. LAB BLOOD ADD-ON Performing Organization Address City/[facility] Co de Phone Number [facility] [address] [place] [address], [facility] DTL [facility] [address] [place] [address] * CBC without Differential (10/15/2022 7:43 AM APARTMENT MAINTENANCE SUPERVISOR) Only the most recent of3 resultswithin the time period is included. Hemoglobin 14.6 13.2 - 16.6 g/dL 10/15/2022 8:54 AM APARTMENT MAINTENANCE SUPERVISOR DTL Hematocrit 43.7 38.3 - 48.6 % 10/15/2022 8:54 AM APARTMENT MAINTENANCE SUPERVISOR DTL Erythrocytes 4.80 4.35 - 5.65 x10(12)/L 10/15/2022 8:54 AM APARTMENT MAINTENANCE SUPERVISOR DTL MCV 91.0 78.2 - 97.9 fL 10/15/2022 8:54 AM APARTMENT MAINTENANCE SUPERVISOR DTL RBC Distrib Width 13.1 11.8 - 14.5 % 10/15/2022 8:54 AM APARTMENT MAINTENANCE SUPERVISOR DTL Platelet Count 216 135 - 317 x10(9)/L 10/15/2022 8:54 AM APARTMENT MAINTENANCE SUPERVISOR DTL Leukocytes 8.7 3.4 - 9.6 x10(9)/L 10/15/2022 8:54 AM APARTMENT MAINTENANCE SUPERVISOR DTL Blood (Blood, Venous) 10/15/2022 7:43 AM APARTMENT MAINTENANCE SUPERVISOR 10/15/2022 8:39 AM APARTMENT MAINTENANCE SUPERVISOR Luly Blood, B.Ch. LAB BLOOD ADD-ON Performing Organization Address City/[facility]/ZIP Co de Phone Number [facility] [address] [place] [address], [facility] DTL [facility] [address] [place] [address] * Interpretation of Outside MR Head (01/08/2021 1:28 PM APARTMENT MAINTENANCE SUPERVISOR) Only the most recent of7 resultswithin the time period is included. Anatomical Region Laterality Modality Neuroradiology RST LOS, Neur oradiology ARZ LOS, Neuroradiology FLA LOS, Head, Other N/A Magnetic Resonance 01/08/2021 2:44 PM APARTMENT MAINTENANCE SUPERVISOR Impressions 01/08/2021 2:59 PM APARTMENT MAINTENANCE SUPERVISOR No appreciable change on exams dating back to 11/30/2018 and the meningioma involving the sella, left cavernous sinus, left suprasellar cistern and planum sphenoidale. Narrative 01/08/2021 2:59 PM APARTMENT MAINTENANCE SUPERVISOR EXAM: ??INTERPRETATION OF OUTSIDE MR HEAD. MRI brain and sella without and with IV gadolinium 01/04/2021. COMPARISON: ??MRI brain without and with IV gadolinium 01/03/2010, 06/08/2019, 11/30/2018 and 05/13/2018. 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 This lesion continues to measure approximately 1.5 cm superior to inferior by 1.5 cm anterior to posterior. Tumor extension along the tuberculum sella and planum sphenoidale is unchanged since 11/30/2018. There was suggestion of subtle progression along the planum sphenoidale between 05/13/2018 and 11/30/2018 without appreciable further change. There remains minimal suprasellar extension without significant mass effect upon the optic apparatus and minimal encroachment upon the prechiasmatic optic nerves. As previously noted, the mass partially encases the left cavernous and supra-clinoid internal carotid artery without appreciable narrowing. Generalized cerebral and cerebellar volume loss. Examination otherwise negative. Procedure Note Edilberto Al M.D. - 01/08/2021 EXAM: INTERPRETATION OF OUTSIDE MR HEAD. MRI brain and sella without andwith IV gadolinium 01/04/2021. COMPARISON: MRI brain without and with IV gadolinium 01/03/2010,06/08/2019, 11/30/2018 and 05/13/2018. 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 This lesioncontinues to measure approximately 1.5 cm superior to inferior by 1.5 cm anteriorto posterior. Tumor extension along the tuberculum sella and planumsphenoidale is unchanged since 11/30/2018. There was suggestion of subtle progressionalong the planum sphenoidale between 05/13/2018 and 11/30/2018 without appreciablefurther change. There remains minimal suprasellar extension without significantmass effect upon the optic apparatus and minimal encroachment upon theprechiasmatic optic nerves. As previously noted, the mass partially encases the leftcavernous and supra-clinoid internal carotid artery without appreciable narrowing. Generalized cerebral and cerebellar volume loss. Examination otherwisenegative. IMPRESSION: No appreciable change on exams dating back to 11/30/2018 and the meningioma involving the sella, left cavernous sinus, left suprasellarcistern and planum sphenoidale. Lisette Benites P.A.-C. M.S. IMG MRI PROCED URES * (ABNORMAL) Testosterone, Total and Bioavailable (12/05/2020 7:01 AM APARTMENT MAINTENANCE SUPERVISOR) Only the most recent of8 resultswithin the time period is included. Testosterone, Bioavailable, S 42 ng/dL 12/06/2020 2:59 PM [facility] Comment: ----REFERENCE VALUE---- Reference values have not been established for patients who are greater than 70 years of age. ----ADDITIONAL INFORMATION---- Testing performed by Differential Precipitation. This test was developed and its performance characteristics determined by [facility] in a manner consistent with CLIA requirements. This test has not been cleared or approved by the U.S. Food and Drug Administration. Testosterone, Total by Mass Spectrometry, Serum 192(L) 240 - 950 ng/dL 12/06/2020 9:05 AM APARTMENT MAINTENANCE SUPERVISOR [facility] Comment: ----ADDITIONAL INFORMATION---- Testing performed by Liquid Chromatography-Tandem Mass Spectrometry (LC-MS/MS). This test was developed and its performance characteristics determined by [facility] in a manner consistent with CLIA requirements. This test has not been cleared or approved by the U.S. Food and Drug Administration. Blood (Blood, Venous) 12/05/2020 7:01 AM APARTMENT MAINTENANCE SUPERVISOR 12/05/2020 10:24 AM APARTMENT MAINTENANCE SUPERVISOR Luly Blood, B.Ch. LAB BLOOD NON ADD-ON Performing Organization Address City/[facility]/ZIP Co de Phone Number [facility] [address] [place] [address] [facility] of [facility] Medicine [facility] Pathology [address] [place] [address] * (ABNORMAL) S-TSH (Thyroid-Stimulating Hormone - Sensitive) (08/09/2019 6:47 AM CDT) TSH, Sensitive 0.1(L) 0.3 - 4.2 mIU/L 08/09/2019 7:56 AM CDT Blood (Blood, Venous) 08/09/2019 6:47 AM CDT 08/09/2019 7:05 AM CDT Luly Blood, B.Ch. LAB BLOOD ADD-ON Performing Organization Address [facility] Co de Phone Number [facility] [address] * Cortisol (08/09/2019 6:47 AM CDT) Only the most recent of3 resultswithin the time period is included. Cortisol AM Result 20 7 - 25 mcg/dL 08/09/2019 8:09 AM CDT Blood (Blood, Venous) 08/09/2019 6:47 AM CDT 08/09/2019 7:05 AM CDT Luly Blood, B.Ch. LAB BLOOD ADD-ON Performing Organization Address City/[facility]/ZIP Co de Phone Number [facility] [address] * Insulin-Like Growth Factor 1 (08/09/2019 6:46 AM CDT) Only the most recent of2 resultswithin the time period is included. Pathologist [facility] IGF-1, LC/MS, S 46 32 - 200 ng/mL 08/10/2019 11:01 AM CDT Z-score -1.65 -2.0 - 2.0 SD 08/10/2019 11:01 AM CDT Comment: ----ADDITIONAL INFORMATION---- This test was developed and its performance characteristics determined by [facility] in a manner consistent with CLIA requirements. This test has not been cleared or approved by the U.S. Food and Drug Administration. Blood (Blood, Venous) 08/09/2019 6:46 AM CDT 08/09/2019 9:05 AM CDT Luly Blood, B.Ch. LAB BLOOD NON ADD-ON Performing Organization Address City/[facility]/ZIP Co de Phone Number [facility] [address] [place] [address] * Outside Other (11/11/2017 1:15 PM APARTMENT MAINTENANCE SUPERVISOR) Narrative [facility] - 11/12/2017 9:35 AM APARTMENT MAINTENANCE SUPERVISOR This order has been created and auto-finalized to support the import of outside images. If available, original interpretation can be found on the Media Tab in Chart Review or as an image in QREADS. If a re-interpretation or overread is required please follow defined workflow. ?? Provider Not In System IMG DIAGNOSTIC IM AGING PROCEDURES Performing Organization Address City/[facility]/ZIP Co de Phone Number [facility] NA * CBC with Differential (06/30/2017 7:09 AM CDT) Only the most recent of2 resultswithin the time period is included. [facility] Hemoglobin 14.6 13.5 - 17.5 G/DL [facility] Hematocrit 43.6 38.8 - 50.0 % [facility] RBC Distrib Width 12.8 11.8 - 15.6 % [facility] Platelet Count 201 150 - 450 X10(9)/L [facility] Lymphocytes 2.04 0.90 - 2.90 X10(9)/L [facility] Monocytes 0.77 0.30 - 0.90 X10(9)/L [facility] Erythrocytes 4.73 4.32 - 5.72 X10(12)/L [facility] MCV 92.2 81.2 - 95.1 FL [facility] Leukocytes 8.3 3.5 - 10.5 X10(9)/L [facility] Neutrophils 5.25 1.70 - 7.00 X10(9)/L [facility] Eosinophils 0.18 0.05 - 0.50 X10(9)/L [facility] Basophils 0.08 0.00 - 0.30 X10(9)/L [facility] 06/30/2017 7:09 AM CDT 06/30/2017 7:09 AM CDT Luly Blood, B.Ch. LAB BLOOD ADD-ON Performing Organization Address City/[facility]/ZIP Co de Phone Number [facility] [address] * LH (Luteinizing Hormone) (11/08/2016 10:42 AM APARTMENT MAINTENANCE SUPERVISOR) Luteinizing Hormone (LH) 2.3 1.8 - 8.6 IU/L [facility] 11/08/2016 10:4 2 AM APARTMENT MAINTENANCE SUPERVISOR 11/08/2016 10:42 AM APARTMENT MAINTENANCE SUPERVISOR Historical Provider LAB BLOOD ADD-ON Performing Organization Address City/[facility]/ZIP Co de Phone Number [facility] [address] * FSH (Follicle-Stimulating Hormone) (11/08/2016 10:42 AM APARTMENT MAINTENANCE SUPERVISOR) Follicle-Stim Hormone (FSH), S 1.8 1.0 - 18.0 IU/L [facility] 11/08/2016 10:4 2 AM APARTMENT MAINTENANCE SUPERVISOR 11/08/2016 10:42 AM APARTMENT MAINTENANCE SUPERVISOR Historical Provider LAB BLOOD ADD-ON Performing Organization Address City/[facility] Co de Phone Number [facility] [address] * Calcium, Total (11/08/2016 10:42 AM APARTMENT MAINTENANCE SUPERVISOR) Calcium, Total, S 9.1 8.9 - 10.1 MG/DL [facility] 11/08/2016 10:4 2 AM APARTMENT MAINTENANCE SUPERVISOR 11/08/2016 10:42 AM APARTMENT MAINTENANCE SUPERVISOR Historical Provider LAB BLOOD ADD-ON Performing Organization Address [facility] Co de Phone Number [facility] [address] * ACTH (Adrenocorticotropic Hormone) (11/08/2016 10:41 AM APARTMENT MAINTENANCE SUPERVISOR) Adrenocorticotropic Hormone, P 18 10-60 (a.m. collecti on) PG/ML [facility] 11/08/2016 10:4 1 AM APARTMENT MAINTENANCE SUPERVISOR 11/08/2016 10:41 AM APARTMENT MAINTENANCE SUPERVISOR Historical Provider LAB BLOOD NON ADD-ON Performing Organization Address [facility] Co de Phone Number [facility] [address] * CT Orbits and Sella without IV Contrast (11/07/2016 9:07 AM APARTMENT MAINTENANCE SUPERVISOR) Anatomical Region Laterality Modality Head N/A Computed Tomogra phy 11/07/2016 9:07 AM APARTMENT MAINTENANCE SUPERVISOR Impressions 11/07/2016 11:14 AM APARTMENT MAINTENANCE SUPERVISOR ??While the irregular mass involving the planum sphenoidale and suprasellar cistern remains nonspecific, calcifications within the lesion provide further support for the potential diagnosis of meningioma. FINDINGS: ??There is again noted an irregular, ??poorly marginated mass involving the planum sphenoidale, sella, suprasellar cistern, and bilateral cavernous sinuses. On today's noncontrast CT, multiple small calcifications are visible within the mass. These are predominantly along the superior portion of the mass. (Atherosclerotic vascular calcifications within the carotid siphons along the inferior and lateral margins of the mass should not be confused with further lesional calcification.) No definite hyperostosis of the adjacent bony structures is identified. 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 Lymphoma, metastatic disease, sarcoidosis, and macroadenoma are all considered less likely. The mass is again noted to be intimately associated with the optic nerves, optic chiasm, pituitary gland, and bilateral internal carotid arteries. These relationships are all better demonstrated on the contrast-enhanced MRI of 11/01/2016. Mild age-related cerebral volume loss. Dolichoectasia of the vertebral basilar system with associated atherosclerotic vascular calcifications. Mild mucosal thickening within the sphenoid sinus bilaterally and within the ethmoid air cells. Electronically signed by: ?? Tor Longo MD [id number] 07-Nov-2016 11:14 Narrative 11/07/2016 11:14 AM APARTMENT MAINTENANCE SUPERVISOR 07-Nov-2016 09:07:00 ??Exam: CT PF/Sella/Orbit wo Indications: Mass Suprasellar ORIGINAL REPORT - 07-Nov-2016 11:14:00 EXAM: ??CT scan of the Posterior Fossa/Sella/Orbit without IV contrast COMPARISON: ??Sella MRI 11/01/2016. Procedure Note Valentín Longo M.D. - 02/19/2018 07-Nov-2016 09:07:00 Exam: CT PF/Sella/Orbit wo Indications: Mass Suprasellar ORIGINAL REPORT - 07-Nov-2016 11:14:00 EXAM: CT scan of the Posterior Fossa/Sella/Orbit without IV contrast COMPARISON: Sella MRI 11/01/2016. IMPRESSION: While the irregular mass involving the planum sphenoidale andsuprasellar cistern remains nonspecific, calcifications within the lesionprovide further support for the potential diagnosis of meningioma. FINDINGS: There is again noted an irregular, poorly marginated massinvolving the planum sphenoidale, sella, suprasellar cistern, andbilateral cavernous sinuses. On today's noncontrast CT, multiple smallcalcifications are visible within the mass. These are predominantly alongthe superior portion of the mass. (Atherosclerotic vascular calcificationswithin the carotid siphons along the inferior and lateral margins of themass should not be confused with further lesional calcification.) Nodefinite hyperostosis of the adjacent bony structures is identified. 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 Lymphoma, metastatic disease, sarcoidosis, andmacroadenoma are all considered less likely. The mass is again noted to beintimately associated with the optic nerves, optic chiasm, pituitarygland, and bilateral internal carotid arteries. These relationships areall better demonstrated on the contrast-enhanced MRI of 11/01/2016. Mild age-related cerebral volume loss. Dolichoectasia of the vertebralbasilar system with associated atherosclerotic vascular calcifications. Mild mucosal thickening within the sphenoid sinus bilaterally and withinthe ethmoid air cells. Electronically signed by: Tor Longo MD [id number] 07-Nov-2016 11:14 David Fontana M.D. [facility] [place] PROCEDURES * (ABNORMAL) Prolactin, Pituitary Macroadenoma (11/05/2016 9:30 AM APARTMENT MAINTENANCE SUPERVISOR) Prolactin Total 26.5(H) 4.0 - 15.2 NG/ML [facility] Comment . [facility] Comment: 10,100,and 400-fold dilutions produced results consistent ? with the absence of high-dose hook effects. ? ADDITIONAL INFORMATION ? The testing method is an electrochemiluminescence ? assay manufactured by [employer] and ? performed on the Vamshi system. ? Values obtained with different assay methods or kits ? may be different and cannot be used interchangeably. ? Test results cannot be interpreted as absolute evidence ? for the presence or absence of malignant disease. ? 11/05/2016 9:30 AM APARTMENT MAINTENANCE SUPERVISOR 11/05/2016 9:30 AM APARTMENT MAINTENANCE SUPERVISOR Sara Buenrostro M.D., Ph.D. LAB BLOOD ADD-ON Performing Organization Address City/State/[facility] Co de Phone Number [facility] [address] * (ABNORMAL) Hemoglobin A1c (11/05/2016 9:30 AM APARTMENT MAINTENANCE SUPERVISOR) Hemoglobin A1c, B 5.7(H) 4.0 - 5.6 % [facility] Comment: Hemoglobin A1c values of 5.7-6.4 percent indicate an ? increased risk for developing diabetes mellitus. In ? diabetic patients, HbA1c goals should be discussed with ? healthcare provider. ? 11/05/2016 9:30 AM APARTMENT MAINTENANCE SUPERVISOR 11/05/2016 9:30 AM APARTMENT MAINTENANCE SUPERVISOR Sara Buenrostro M.D., Ph.D. LAB BLOOD ADD-ON [facility] [address] [place] [address], [facility] * MR Brain without and with IV Contrast (11/01/2016 3:27 PM APARTMENT MAINTENANCE SUPERVISOR) Anatomical Region Laterality Modality Head, Brain N/A Magnetic Resonan ce 11/01/2016 3:27 PM APARTMENT MAINTENANCE SUPERVISOR Impressions 11/01/2016 4:11 PM APARTMENT MAINTENANCE SUPERVISOR The planum ssmsmbrhvpq-rnutgauwdyt-oboclt mass with extension into the cavernous sinuses is most compatible with a meningioma. A CT could help evaluate for calcification/hyperostosis, which would provide further confidence in this diagnosis. A slightly differential considerations include unusual dural based lesions, such as lymphoma, metastatic disease, or sarcoidosis. The appearance does not suggest macroadenoma. FINDINGS: ??Seen to better advantage on today's dedicated sella exam is an extra-axial T2 hypointense enhancing mass with slightly irregular margins involving the planum sphenoidale, suprasellar region, sella, and bilateral cavernous sinuses, left greater than right. Anteriorly, the enhancement extends to the posterior aspect of the fovea ethmoidalis. Anterolaterally extends along the anterior clinoid on the left. Laterally, it abuts the cavernous-paraclinoid ICA s, greater on the left, without appreciable narrowing of these patent vessels. Posteriorly, small amount of enhancement along the posterior aspect of the clivus, right greater than left, is probably venous engorgement, rather than tumor, given slightly different enhancement characteristics. The infundibulum is partially encased, and slightly deviated to the right. The undersurface of the optic chiasm-prechiasmatic optic nerves is abutted, bilaterally and nearly to the orbital apex, again greater on the left. No convincing intraorbital extension. Allowing for artifact on today's axial FLAIR sequence, no convincing parenchymal signal abnormality. Mild inherent T1 hyperintensity in the mid aspect of the infundibulum, presumably due to ADH from compressive effect by the lesion. No other lesion. Again seen: mild volume loss, minimal leukoaraiosis and vertebrobasilar dolichoectasia. Electronically signed by: ?? Nathalie Preciado MD. [id number] 01-Nov-2016 16:11 Narrative 11/01/2016 4:11 PM APARTMENT MAINTENANCE SUPERVISOR 01-Nov-2016 15:27:00 ??Exam: MRI Hd wo&w Indications: Mass Pituitary ORIGINAL REPORT - 01-Nov-2016 16:11:00 EXAM: ??MRI Brain without and with IV contrast Sella protocol COMPARISON: ? Head MRI 10/30/2016 Procedure Note Gavino Preciado M.D. - 02/19/2018 01-Nov-2016 15:27:00 Exam: MRI Hd wo&w Indications: Mass Pituitary ORIGINAL REPORT - 01-Nov-2016 16:11:00 EXAM: MRI Brain without and with IV contrast Sella protocol COMPARISON: Head MRI 10/30/2016 IMPRESSION: The planum dkdldixnmrm-ugrdccebzhm-wjxlcs mass with extensioninto the cavernous sinuses is most compatible with a meningioma. A CTcould help evaluate for calcification/hyperostosis, which would providefurther confidence in this diagnosis. A slightly differentialconsiderations include unusual dural based lesions, such as lymphoma,metastatic disease, or sarcoidosis. The appearance does not suggestmacroadenoma. FINDINGS: Seen to better advantage on today's dedicated sella exam is anextra- axial T2 hypointense enhancing mass with slightly irregular marginsinvolving the planum sphenoidale, suprasellar region, sella, and bilateralcavernous sinuses, left greater than right. Anteriorly, the enhancementextends to the posterior aspect of the fovea ethmoidalis. Anterolaterallyextends along the anterior clinoid on the left. Laterally, it abuts thecavernous-paraclinoid ICA s, greater on the left, without appreciablenarrowing of these patent vessels. Posteriorly, small amount ofenhancement along the posterior aspect of the clivus, right greater thanleft, is probably venous engorgement, rather than tumor, given slightlydifferent enhancement characteristics. The infundibulum is partiallyencased, and slightly deviated to the right. The undersurface of the opticchiasm-prechiasmatic optic nerves is abutted, bilaterally and nearly tothe orbital apex, again greater on the left. No convincing intraorbitalextension. Allowing for artifact on today's axial FLAIR sequence, noconvincing parenchymal signal abnormality. Mild inherent T1 hyperintensity in the mid aspect of the infundibulum,presumably due to ADH from compressive effect by the lesion. No other lesion. Again seen: mild volume loss, minimal leukoaraiosis andvertebrobasilar dolichoectasia. Electronically signed by: Nathalie Preciado MD. [id number] 01-Nov-2016 16:11 Raciel Garcia M.D., Ph.D. [facility] MRI PRO CEDURES * Anti-HMGCR Autoantibodies - Sent Out Lab (10/31/2016 2:35 PM APARTMENT MAINTENANCE SUPERVISOR) Anti-HMGCR Antibody <20 <20 [facility] Comment: ? ADDITIONAL INFORMATION ? Anti-HMGCR Ab EIA Interpretation: ? Negative..............<20 ? Weak Positive.......20-39 ? Moderate Positive...40-59 ? Strong Positive......>=60 ? Anti-HMGCR Antibodies are usually found in association with ? necrotizing myopathy related to statin therapy. However, ? about 30% of Anti-HMGCR positive patients with necrotizing ? myopathy have never been exposed to statins. The literature ? suggests that false positives are extremely rare. As a lab ? developed test (LDT), approval or clearance by the FDA is ? not required. This test may be used for clinical purposes ? and should not be regarded as investigational or for ? research. ? Diagnosis ? Number (%) Pos ? Polymyositis/Dermatomyositis....2/76(2.6) ? Systemic Lupus Erythematosis....0/30(0.0) ? Primary Sjogren's Syndrome......0/30(0.0) ? Rheumatoid Arthritis............0/30(0.0) ? Systemic Sclerosis..............0/30(0.0) ? Normal Controls.................0/47(0.0) ? 10/31/2016 2:35 PM APARTMENT MAINTENANCE SUPERVISOR 10/31/2016 2:35 PM APARTMENT MAINTENANCE SUPERVISOR Raciel Garcia M.D., Ph.D. LAB BLOOD A DD-ON [facility] [address] * MyoMarker Panel 3 - Sent Out Lab (10/31/2016 2:35 PM APARTMENT MAINTENANCE SUPERVISOR) HX Myomarker Panel 3 . [facility] Comment: Test ? Result ? Flag ??Unit ?? RefValue ? MyoMarker Panel 3 ?Anti-Deborah-1 Ab ? <20 ?Units ??<20 ?PL-7 ? Negative ?Negative ?PL-12 ?Negative ?Negative ?EJ ? Negative ?Negative ?OJ ? Negative ?Negative ?SRP ?Negative ?Negative ?MA-2 ? Negative ?Negative ?TIF1 GAMMA (P155/140) ?<20 ?Units ??<20 ?MDA-5 (P140)(CADM-140) ? <20 ?Units ??<20 ?NXP-2 (P140) ? <20 ?Units ??<20 ?Anti-PM/Scl Ab ? <20 ?Units ??<20 ?Fibrillarin (U3 MANAGER INVENTORY CONTROL) ? Negative ?Negative ?U2 snRNP ? Negative ?Negative ?Anti-U1-MANAGER INVENTORY CONTROL Ab ? <20 ?Units ??<20 ?Ku ? Negative ?Negative ?Anti-SS-A 52 kD Ab, IgG ?<20 ?Units ??<20 ? ADDITIONAL INFORMATION ?EIA Interpretation: ?Negative ? <20 Units ?Weak Positive ?20-39 Units ?Moderate Positive ??40-80 Units ?Strong Positive ?>80 Units ?This panel was developed and its performance ?characteristics validated by [facility]. There is no FDA approved ?assay for the above tests. As a lab developed test (LDT), ?approval or clearance by the FDA is not required. This test ?may be used for clinical purposes and should not be ?regarded as investigational or for research. ? 10/31/2016 2:35 PM APARTMENT MAINTENANCE SUPERVISOR 10/31/2016 2:35 PM APARTMENT MAINTENANCE SUPERVISOR Historical Provider LAB BLOOD ADD-ON [facility] [address] [place] [address], [facility] * MR Brain without IV Contrast (10/30/2016 8:35 PM APARTMENT MAINTENANCE SUPERVISOR) Anatomical Region Laterality Modality Head, Brain N/A Magnetic Resonan ce 10/30/2016 8:35 PM APARTMENT MAINTENANCE SUPERVISOR Impressions 10/31/2016 8:28 AM APARTMENT MAINTENANCE SUPERVISOR 1. No significant structural changes to correlate with the patient's memory complaints. 2. Sellar and suprasellar soft tissue mass with extension to involve the cavernous sinuses. A dedicated MR examination of the sella with contrast would allow for a more detailed characterization of this lesion. FINDINGS: ??Mild degrees of intracranial volume loss noted with minimal leukoaraiosis. Pattern of cortical volume loss is nonspecific. Heavily T1 weighted volume acquisition demonstrates no discordant hippocampal atrophy. Diffusion imaging is negative. Gradient echo imaging demonstrates no intracranial blood product. Dolichoectasia of the left vertebral artery is noted causing some mild compression of the left ventrolateral surface of the medulla. Incidental note is made of a soft tissue mass arising from the sella with suprasellar extension and question of lateral extension into the cavernous sinuses, left greater than right. No significant degrees of optic nerve or optic chiasm displacement is noted. 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 Orbits and paranasal sinuses are unremarkable. 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 Results of this interpretation were discussed with Dr. Raciel Garcia of the Neurology Service. Electronically signed by: ?? Mg Lucio M.D. ??[id number] 31-Oct-2016 08:28 Narrative 10/31/2016 8:28 AM APARTMENT MAINTENANCE SUPERVISOR 30-Oct-2016 20:35:00 ??Exam: MRI Hd wo Indications: Complaint Memory ORIGINAL REPORT - 31-Oct-2016 08:28:00 EXAM: ??MRI Brain without IV contrast COMPARISON: ??None Procedure Note Олег Lucio M.D. - 02/19/2018 30-Oct-2016 20:35:00 Exam: MRI Hd wo Indications: Complaint Memory ORIGINAL REPORT - 31-Oct-2016 08:28:00 EXAM: MRI Brain without IV contrast COMPARISON: None IMPRESSION: 1. No significant structural changes to correlate with the patient'smemory complaints. 2. Sellar and suprasellar soft tissue mass with extension to involve thecavernous sinuses. A dedicated MR examination of the sella with contrastwould allow for a more detailed characterization of this lesion. FINDINGS: Mild degrees of intracranial volume loss noted with minimalleukoaraiosis. Pattern of cortical volume loss is nonspecific. Heavily [id number] volume acquisition demonstrates no discordant hippocampalatrophy. Diffusion imaging is negative. Gradient echo imaging demonstratesno intracranial blood product. Dolichoectasia of the left vertebral arteryis noted causing some mild compression of the left ventrolateral surfaceof the medulla. Incidental note is made of a soft tissue mass arising fromthe sella with suprasellar extension and question of lateral extensioninto the cavernous sinuses, left greater than right. No significantdegrees of optic nerve or optic chiasm displacement is noted. Appearancewould be most consistent with a pituitary macroadenoma although dedicatedMR examination of the sella will provide a more detailed characterizationof the mass. Orbits and paranasal sinuses are unremarkable. Severedegenerative changes demonstrated at the atlantoaxial joint and uppercervical facet joints. Results of this interpretation were discussed with Dr. Raciel Garcia ofthe Neurology Service. Electronically signed by: Mg Lucio M.D. [id number] 31-Oct-2016 08:28 Raciel Garcia M.D., Ph.D. IMG MRI PRO CEDURES * DX Chest AP or PA and Lateral 2 Views (10/30/2016 9:21 AM APARTMENT MAINTENANCE SUPERVISOR) Anatomical Region Laterality Modality Chest N/A Radiographic Rachele ging 10/30/2016 9:21 AM APARTMENT MAINTENANCE SUPERVISOR Impressions 10/30/2016 11:24 AM APARTMENT MAINTENANCE SUPERVISOR ??No comparison. Slightly tortuous thoracic aorta. Mild degenerative changes of the spine. Chest otherwise negative. Electronically signed by: ?? Edi Rivas MD [id number] 30-Oct-2016 11:24 Narrative 10/30/2016 11:24 AM APARTMENT MAINTENANCE SUPERVISOR 30-Oct-2016 09:21:00 ??Exam: Chest-- 2 Views Indications: Myopathy NOS ORIGINAL REPORT - 30-Oct-2016 11:24:00 EXAM: ??Chest 2 views Procedure Note Jonathan Rivas M.D. - 02/19/2018 30-Oct-2016 09:21:00 Exam: Chest-- 2 Views Indications: Myopathy NOS ORIGINAL REPORT - 30-Oct-2016 11:24:00 EXAM: Chest 2 views IMPRESSION: No comparison. Slightly tortuous thoracic aorta. Milddegenerative changes of the spine. Chest otherwise negative. Electronically signed by: Edi Rivas MD [id number] 30-Oct-2016 11:24 Raciel Garcia M.D., Ph.D. IMG DIAGNOS TIC IMAGING PROCEDURES * EMG (10/30/2016 7:30 AM APARTMENT MAINTENANCE SUPERVISOR) 10/30/2016 7:30 AM APARTMENT MAINTENANCE SUPERVISOR [facility] RADIOLOGY SYSTEM - 10/30/2016 9:33 AM APARTMENT MAINTENANCE SUPERVISOR 30-Oct-2016 ? Electromyography ? Final Report Study Number: 1 EMG Shopper: Darnell Almazan 127 or [phone] Referred by: Porter, ?? Sara ([id number]) Referred for: Myopathy NOS Referral Code: ?100 200 ??310 SUMMARY: Prior to starting the procedure, the patient's identity was verified, pertinent available records were reviewed, the nature of the procedure was explained, the appropriate sites of the exam were confirmed directly with the patient, and a pre-procedure pause was performed for final verification of all of the above. ?? Nerve conduction studies showed mildly slowed conduction velocities with low amplitude median sensory response. ?? Baseline 2 Hertz repetitive stimulation of the peroneal and ulnar nerves was normal. ??The needle examination revealed large motor units in anterior tibialis and in C5/6 muscles on the left side. CLINICAL INTERPRETATION: There is no EMG evidence for a myopathy or polyradiculopathy. 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 Jj. Tha (127 or [phone])/[facility] NERVE CONDUCTIONS ?Temperature: upper: 34.4, lower: 30.4 ? ? ?C ?Record ?Rep ? Normal ?Normal Distal Normal ??F-Wave F-Wave Nerve ? Type ?Site ?Stim Side Amp Amp ?CV CV ? Lat ?Lat ? Lat ?Est ? ----- ?extensor ?digitorum ?brevis Peroneal ?motor ?? (pedis) ?* ?? L ?2.7 (> 2.0) ??39 (> 41) 5.3 ?(< 6.6) 59.7 ?? 64.5 ? Remark: moved g1 ? ----- ?abductor Tibial ?motor ?? hallucis ? L ?4.5 (> 4.0) ??38 (> 40) 5.1 ?(< 6.1) 62.7 ?? 66.2 ?? ----- Sural ? sensory ankle ?L ?4 ?? (> 0.0) ??45 ?4.0 ? ----- ?abductor Ulnar ? motor ?? digiti minimi ??* ?? L ?9.3 (> 6.0) ??55 (> 51) 3.0 ?(< 3.6) 31.9 ?? 29.9 ?? ----- Median ?sensory index ?L ?12 ??(> 15.0) 53 (> 56) 3.7 ?(< 3.6) ? ----- Ulnar ? sensory fifth ?L ?5 ?? (> 10.0) ?(> 54) 2.9 ?(< 3.1) ? ----- NEEDLE EMG ? Ins ?Spont ? MUP ?Recruitment ?? Duration ?? Amplitude Phases ? Muscle ?Side Act ?Fib ??Fasc Normal Activ Reduced Rapid Long Short High Low ??% ?Turns ----- Thoracic paraspinals ?? L ?Normal 0 ?0 ?Normal ? ----- Triceps brachii ? L ?Normal 0 ?0 ?Normal ? ----- Deltoid ? L ?Normal 0 ?0 ? + ?+ ? 25% ? ----- First Dorsal Interosseous ??L ?Normal 0 ?0 ?Normal ? ----- Infraspinatus L ?Normal 0 ?0 ? + ? + ?+ ? ----- Tibialis Anterior ?L ?Normal +/- ??0 ? + ?+ ? ----- Tensor fasciae latae L ?Normal 0 ?0 ?Normal ? ----- Procedure Note Darnell Almazan M.D. - 03/06/2018 30-Oct-2016 Electromyography Final Report Study Number: 1 EMG Shopper: Darnell Almazan 127 tf [phone] Referred by: Sara Buenrostro ([id number]) Referred for: Myopathy NOS Referral Code: 100 200 310 SUMMARY: Prior to starting the procedure, the patient's identity wasverified, pertinent available records were reviewed, the nature of the procedure was explained, theappropriate sites of the exam were confirmed directly with the patient, and a pre-procedure pausewas performed for final verification of all of the above. Nerve conduction studies showed mildly slowed conduction velocities with low amplitude median sensory response. Baseline 2 Hertzrepetitive stimulation of the peroneal and ulnar nerves was normal. The needle examinationrevealed large motor units in anterior tibialis and in C5/6 muscles on the left side. CLINICAL INTERPRETATION: There is no EMG evidence for a myopathy orpolyradiculopathy. There is a mild length-dependent peripheral neuropathy and likely residua of an oldprocess in the left arm, likely C5/6 radiculopathy. Carlitos Almazan (127 or [phone])/[facility] NERVE CONDUCTIONS Temperature: upper: 34.4, lower: 30.4 ? ? ?C Record Rep Normal NormalDistal Normal F-Wave F-Wave Nerve Type Site Stim Side Amp Amp CV CV LatLat Lat Est ----- extensor digitorum brevis Peroneal motor (pedis) * L 2.7 (> 2.0) 39 (> 41) 5.3(< 6.6) 59.7 64.5 Remark: moved g1 ----- abductor Tibial motor hallucis L 4.5 (> 4.0) 38 (> 40) 5.1(< 6.1) 62.7 66.2 ----- Sural sensory ankle L 4 (> 0.0) 45 4.0 ----- abductor Ulnar motor digiti minimi * L 9.3 (> 6.0) 55 (> 51) 3.0(< 3.6) 31.9 29.9 ----- Median sensory index L 12 (> 15.0) 53 (> 56) 3.7(< 3.6) ----- Ulnar sensory fifth L 5 (> 10.0) (> 54) 2.9(< 3.1) ----- NEEDLE EMG Ins Spont MUP Recruitment DurationAmplitude Phases Muscle Side Act Fib Fasc Normal Activ Reduced Rapid Long ShortHigh Low % Turns ----- Thoracic paraspinals L Normal 0 0 Normal ----- Triceps brachii L Normal 0 0 Normal ----- Deltoid L Normal 0 0 ++ 25% ----- First Dorsal Interosseous L Normal 0 0 Normal ----- Infraspinatus L Normal 0 0 + ++ ----- Tibialis Anterior L Normal +/- 0 ++ ----- Tensor fasciae latae L Normal 0 0 Normal ----- Historical Provider NEUROLOGY ORDERABLES [facility] RADIOLOGY SYSTEM [address] * Thyroid Function [place] (10/29/2016 4:11 PM APARTMENT MAINTENANCE SUPERVISOR) Pathologist [facility] TSH, Sensitive 3.3 0.3 - 4.2 MIU/L [facility] 10/29/2016 4:11 PM APARTMENT MAINTENANCE SUPERVISOR 10/29/2016 4:11 PM APARTMENT MAINTENANCE SUPERVISOR Raciel Garcia M.D., Ph.D. LAB BLOOD A DD-ON Performing Organization Address [facility] de Phone Number [facility] [address] * HIV-1/-2 Ag and Ab Screen (10/29/2016 4:11 PM APARTMENT MAINTENANCE SUPERVISOR) [facility] HIV-1/-2 Ag and Ab Screen, S Negative Negative [facility] Comment: Negative result does not rule out HIV infection. If ? acute HIV infection is suspected in a high-risk ? individual, submit plasma specimen for HIV-1 RNA ? quantification test (HIVDQ) and/or HIV-2 DNA/RNA ? test (FHV2Q). ? 10/29/2016 4:11 PM APARTMENT MAINTENANCE SUPERVISOR 10/29/2016 4:11 PM APARTMENT MAINTENANCE SUPERVISOR Raciel Garcia M.D., Ph.D. LAB MICROBI OLOGY - BLOOD ORDERABLES Performing Organization Address [facility] de Phone Number [facility] [address] * ANCA (Antineutrophil Cytoplasmic Antibodies) Vasculitis Panel (10/29/2016 4:11 PM APARTMENT MAINTENANCE SUPERVISOR) Myeloperoxidase Ab, S <0.2 <0.4 (Negative ) U [facility] Proteinase 3 Ab (PR3), S <0.2 <0.4 (Negative ) U [facility] 10/29/2016 4:11 PM APARTMENT MAINTENANCE SUPERVISOR 10/29/2016 4:11 PM APARTMENT MAINTENANCE SUPERVISOR Raciel Garcia M.D., Ph.D. LAB BLOOD A DD-ON Performing Organization Address City/[facility]/ZIP Co de Phone Number [facility] [address] * Antibody to Extractable Nuclear Antigen Evaluation (10/29/2016 4:11 PM APARTMENT MAINTENANCE SUPERVISOR) SS-A/Ro Ab, IgG, S <0.2 <1.0 (Negative) U [facility] SS-B/La Ab, IgG, S <0.2 <1.0 (Negative) U [facility] Scl 70 Ab, IgG, S <0.2 <1.0 (Negative) U [facility] Deborah 1 Ab, IgG, S <0.2 <1.0 (Negative) U [facility] Sm Ab, IgG, S <0.2 <1.0 (Negative) U [facility] MANAGER INVENTORY CONTROL Ab, IgG, S <0.2 <1.0 (Negative) U [facility] 10/29/2016 4:11 PM APARTMENT MAINTENANCE SUPERVISOR 10/29/2016 4:11 PM APARTMENT MAINTENANCE SUPERVISOR Raciel Garcia M.D., Ph.D. LAB BLOOD A DD-ON [facility] [address] * (ABNORMAL) Connective Tissue Diseases [place] (10/29/2016 4:11 PM APARTMENT MAINTENANCE SUPERVISOR) Interpretation . [facility] Comment: Tests for antibodies to dsDNA and KIP antigens are not ? performed automatically unless the TOMAS result is > or = ? 3.0 U. ??Studies performed at [facility] indicate that ? positive TOMAS results <3.0 U are rarely accompanied by ? positive second order tests. ? Cyclic Citrullinated Peptide Ab, S <15.6 <20.0 (Negative ) U [facility] Antinuclear Ab, S 1.2(H) <=1.0 (Negative ) U [facility] Comment:Interpretation: Weak Positive (1.1-2.9) 10/29/2016 4:11 PM APARTMENT MAINTENANCE SUPERVISOR 10/29/2016 4:11 PM APARTMENT MAINTENANCE SUPERVISOR Raciel Garcia M.D., Ph.D. LAB BLOOD A DD-ON [facility] [address] [place] [address], [facility] * ALT (Alanine Aminotransferase) (10/29/2016 4:11 PM APARTMENT MAINTENANCE SUPERVISOR) Alanine Aminotransferase (ALT), S 22 7 - 55 U/L [facility] 10/29/2016 4:11 PM APARTMENT MAINTENANCE SUPERVISOR 10/29/2016 4:11 PM APARTMENT MAINTENANCE SUPERVISOR Raciel Garcia M.D., Ph.D. LAB BLOOD A DD-ON Performing Organization Address City/[facility] Co de Phone Number [facility] [address] * AST (Aspartate Aminotransferase) (10/29/2016 4:11 PM APARTMENT MAINTENANCE SUPERVISOR) AST, Total, S 32 8 - 48 U/L [facility] 10/29/2016 4:11 PM APARTMENT MAINTENANCE SUPERVISOR 10/29/2016 4:11 PM APARTMENT MAINTENANCE SUPERVISOR Raciel Garcia M.D., Ph.D. LAB BLOOD A DD-ON Performing Organization Address [facility] Co de Phone Number [facility] [address] * Alkaline Phosphatase (10/29/2016 4:11 PM APARTMENT MAINTENANCE SUPERVISOR) Alkaline Phosphatase, S 70 45 - 115 U/L [facility] 10/29/2016 4:11 PM APARTMENT MAINTENANCE SUPERVISOR 10/29/2016 4:11 PM APARTMENT MAINTENANCE SUPERVISOR Raciel Garcia M.D., Ph.D. LAB BLOOD A DD-ON Performing Organization Address [facility] Co de Phone Number [facility] [address] * Folate (10/29/2016 4:11 PM APARTMENT MAINTENANCE SUPERVISOR) Folate, S >20.0 >=4.0 MCG/L [facility] 10/29/2016 4:11 PM APARTMENT MAINTENANCE SUPERVISOR 10/29/2016 4:11 PM APARTMENT MAINTENANCE SUPERVISOR Raciel Garcia M.D., Ph.D. LAB BLOOD A DD-ON [facility] [address] * CK (Creatine Kinase) (10/29/2016 4:11 PM APARTMENT MAINTENANCE SUPERVISOR) Creatine Kinase (CK), S 230 52 - 336 U/L [facility] 10/29/2016 4:11 PM APARTMENT MAINTENANCE SUPERVISOR 10/29/2016 4:11 PM APARTMENT MAINTENANCE SUPERVISOR Raciel Garcia M.D., Ph.D. LAB BLOOD A DD-ON Performing Organization Address [facility] Co de Phone Number [facility] [address] * Pernicious Anemia [place] (10/29/2016 4:10 PM APARTMENT MAINTENANCE SUPERVISOR) Vitamin B12 Assay, S 707 180 - 914 NG/L [facility] 10/29/2016 4:10 PM APARTMENT MAINTENANCE SUPERVISOR 10/29/2016 4:10 PM APARTMENT MAINTENANCE SUPERVISOR Raciel Garcia M.D., Ph.D. LAB BLOOD N ON ADD-ON Performing Organization Address [facility] Co de Phone Number [facility] [address] * Sedimentation Rate (10/29/2016 4:10 PM APARTMENT MAINTENANCE SUPERVISOR) Sedimentation Rate, B 10 0 - 22 MM/1 H [facility] 10/29/2016 4:10 PM APARTMENT MAINTENANCE SUPERVISOR 10/29/2016 4:10 PM APARTMENT MAINTENANCE SUPERVISOR Raciel Garcia M.D., Ph.D. LAB BLOOD A DD-ON Performing Organization Address [facility] Co de Phone Number [facility] [address] * PT (Prothrombin Time) with INR (10/29/2016 4:10 PM APARTMENT MAINTENANCE SUPERVISOR) Prothrombin Time, P 12.5 9.5 - 13.8 SEC [facility] INR 1.0 0.8 - 1.2 [facility] 10/29/2016 4:10 PM APARTMENT MAINTENANCE SUPERVISOR 10/29/2016 4:10 PM APARTMENT MAINTENANCE SUPERVISOR Raciel Garcia M.D., Ph.D. 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 Low 08/09/2019 Meningioma Brain (HCC) 08/09/2019 Testosterone Low 08/09/2019 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 Meningioma Brain (HCC) 08/12/2019 Meningioma Brain (HCC) 08/24/2019 Meningioma Brain (HCC) 10/12/2019 Meningioma Brain (HCC) 01/06/2020 Meningioma Brain (HCC) 01/06/2020 Mass Pituitary (HCC) 01/06/2020 Mass Pituitary (HCC) 10/18/2020 Mass Pituitary (HCC) 12/05/2020 Mass Pituitary (HCC) 12/05/2020 Mass Pituitary (HCC) 01/06/2021 Meningioma Brain (HCC) 01/08/2021 Meningioma Brain (HCC) 01/08/2021 Mass Pituitary (HCC) 01/08/2021 Mass Pituitary (HCC) 03/31/2021 Mass Pituitary (HCC) 11/26/2021 Meningioma Brain (HCC) 01/14/2022 Mass Pituitary (HCC) 07/13/2022 Mass Pituitary (HCC) 10/09/2022 Meningioma Brain (HCC) 10/15/2022 Mass Pituitary (HCC) 10/15/2022 Mass Pituitary (HCC) 10/15/2022 Meningioma Brain (HCC) 10/15/2022 Mass Pituitary (HCC) 12/16/2022 Meningioma Brain (HCC) 01/10/2023 Mass Pituitary (HCC) 06/16/2023 Care Teams Tube Skiver Relationship Specialty Start Date End Date Elsewhere, Pcp PCP - General Internal Medicine 10/14/22
--- OUTSIDE RECORDS SUMMARY | 2024-01-09 07:35 | XMS_ITS | Patient Health Record ---
Author Name Unknown Organization [facility] Address [address] [place] [address] [address] [place] [address] Care Team Providers Care Manager Supplier Name Role Phone HéctorElise najera Primary Care Provider UnavailJuan King Unavailable [phone] Tricia Raymond Unavailable Unavailable Donovan Ferguson Unavailable [phone] Rohini Valencia Unavailable [phone] ALLERGIES No Known Allergies REASON FOR REFERRAL Reason Right L4-S1 TFE Diagnosis 1 Radiculopathy, lumbo sacral region (M54.17) Referral Organization [facility] Referring Provider First Name Juan Referring Provider Last Name Christine Referring Provider Speciality Pain Medic ine Referred Organization [facility] Referred Provider Juan King Referred Address [address] [place] [address] [address],[place], [place],[address], Referred Provider Specialty Pain Medicin e Referral Priority Routine MEDICATIONS Medication SIG (Take, Route, Frequency, Duration) Notes Start Date End Date Status Medrol 4 MG as directed on Medrol package Orally 1 pack for 6 days 06/11/2023 Active Medrol 4 MG as directed on Medrol package Orally 1 pack for 6 days 06/11/2023 Active HYDROcodone-Acetaminophe n 5-325 MG 1 tablet as needed Orally once a day for 15 days G89.29, M54.17 07/17/2023 Active Gabapentin 300 MG 2 capsules Orally Three times a day for 30 days G89.29, M54.17 06/11/2023 Active Citalopram Hydrobromide 20 MG 1 tablet Orally Once a day Active Atorvastatin Calcium 40 MG 1 tablet Orally Once a day Active metFORMIN HCl 500 MG 1 tablet with a balbir l Orally Once a day Active glipiZIDE ER 2.5 MG 1 tablet with breakfast Orally Once a day Active Levothyroxine Sodium 75 MCG 1 tablet in the morning on an empty stomach Orally Once a day Active Testosterone 1.62 % 1 pump to skin in the morning to shoulder, upper arms or abdomen Transdermal Once a day Active Accu-Chek Guide - as directed In Vitro Active Lancets - as directed Active Lisinopril 10 MG 1 tablet Orally Once a day Active dexAMETHasone 4 MG 1 tablet Orally Once a day Active Albuterol Sulfate HFA 108 (90 Base) MCG/ACT 1 puff as needed Inhalation every 4 hrs Active Gabapentin 300 MG 1 capsule Orally Once a day Active Hydrocortisone 10 MG 1 tablet with food or milk Orally every 12 hrs Active HYDROcodone-Acetaminophe n 5-325 MG 1 tablet as needed Orally every 6 hrs Active SOCIAL HISTORY Tobacco Use: Social History Observation Description Date Details (start date - stop date) Never Smoker NA - NA Sex Assigned At : Social History Observation Description Sex Assigned At Unknown Tobacco Use/Smoking: Question Answer Notes Are you a nonsmoker Alcohol Screen Question Answer Notes Did you have a drink contain ing alcohol in the past year? Yes How often did you have a dri nk containing alcohol in the past year? 2 to 3 times a week (3 points) How many drinks did you have on a typical day when you were drinking in the past year? 1 or 2 drinks (0 point) How often did you have 6 or more drinks on one occasion in the past year? Never (0 point) Points 3 Interpretation Negative PROBLEMS Problem Type ICD Code Onset Dates Problem Status W/U Status Risk SNOMED Code Notes Problem Radiculopathy, lumbosacral region (M54.17) Active confirmed Lumbosacral radiculopathy (8788334) Problem Chronic pain (G89.29) Active confirmed Chronic pain (39529954) VITAL SIGNS Blood pressure diastolic 86 mm Hg 06/11/2023 Height 71 in 06/11/2023 Blood pressure systolic 138 mm Hg 06/11/2023 Weight 221 lbs 06/11/2023 BMI 30.82 kg/m2 06/11/2023 PROCEDURES Procedure Date Ordered Date Performed Result Body Sit e Intervention: 06/11/2023 06/17/2023 sched 06/26 Encounters Encounter Location Date Provider Diagnosis [facility] [address] [place] [address] [address] [place] [address] 06/05/2023 Donovan Ferguson [address] [facility] [address] [place] [phone] 06/11/2023 Juan Christine Chronic pain G89.29 and Radiculopathy, lumbosacral region M54.17 [facility] [address] [place] [address] [address] [place] [address] 06/11/2023 Juancristin Chávezf Radiculopathy, lumbosacral region M54.17 [facility] [address] [place] [address] [address] [place] [address] 06/11/2023 Juan King Radiculopathy, lumbosacral region M54.17 [address] [facility] [address] [place] [phone] 06/12/2023 Donovan Ferguson [facility] [address] [place] [address] [address] [place] [address] 06/24/2023 Juan King [address] [facility] [address] [place] [phone] 06/26/2023 Juancristin Chávezf Radiculopathy, lumbosacral region M54.17 [facility] [address] [place] [address] [address] [place] [address] 07/17/2023 Rohini Valencia Radiculopathy, lumbosacral region M54.17 ASSESSMENTS Encounter Date Diagnosis Assessment Notes Treatment Notes Treatment Clinical Notes 06/11/2023 Radiculopathy, lumbosacral region (ICD-10 - M54.17) Patient Educated with: ARTEMIO-Lumbar info sheet ([email or web address]) 06/11/2023 Chronic pain (ICD-10 - G89.29) Terry is a pleasant 73 year old male that was referred to clinic today by Tricia Raymond DO of [facility] for his low back and right lower extremity pain. I have reviewed his symptoms and current medications. I checked the [facility] database and I did not find any inconsistencies. I will continue with a treatment plan consisting of conservative therapy. I reviewed the patient's lumbar MRI from 06/07/23 and educated him on the findings; see the impression. Based on the results of his imaging, current symptoms, and exam, I recommend a right L4-L5, L5-S1 TFE for his radicular symptoms. I discussed this procedure in detail with the patient, and he expressed understanding and interest, therefore orders were placed accordingly. To calm his pain while he awaits this injection, I recommend starting a Medrol dose robson. He is on chronic hydrocortisone for pituitary compromise, therefore we will call his brim and crown presser and make sure there are no contraindications for starting the steroid burst. Additionally, I will refill his [place] which he has been using sparingly to manage his pain in the short-term. He is tolerating Gabapentin well and I recommend increasing his dose to 600mg TID for improved relief of his neuropathic symptoms. I discussed titration directions with the patient, and he will use his at-home supply to titrate. Prescriptions were printed and given to the patient. If the patient does not adequately improve with his upcoming injection and medication changes, as noted above, I would consider a referral to a spine surgeon regarding his spinal stenosis. This treatment plan was reviewed with Terry, and he was agreeable. He will return 2-3 weeks after his injection for further evaluation or sooner if needed. I will continue to monitor his progress, adjusting his treatment plan as needed. Plan:1. Reviewed lumbar MRI from . Order right L4-L5, L5-S1 TFE3. Start MDP, if cleared by endocrinology4. Refill [place] 5-325mg QD prn x15 days -printed Rx5. Increase Gabapentin to 300mg #2 TID, use at-home supply to titrate6. Consider referral to spine surgeon re: spinal stenosis7. Follow up 2-3 weeks after injection Discharge instructions reviewed verbally. Discussed the risks/benefits of prescribed medication. The patient was instructed to return to the office as scheduled and call with any questions, problems or concerns. MR lumbar spine 06/07/2023:1. At L2-3, moderate right lateral recess narrowing.2. At L4-5, moderately severe spinal canal and right lateral recess stenosis. There is moderate narrowing of the left lateral recess and left neural foramen.3. At L5-S1, moderate left neural foraminal narrowing. 06/11/2023 Radiculopathy, lumbosacral region (ICD-10 - M54.17) 06/11/2023 Radiculopathy, lumbosacral region (ICD-10 - M54.17) 06/26/2023 Radiculopathy, lumbosacral region (ICD-10 - M54.17) 07/17/2023 Radiculopathy, lumbosacral region (ICD-10 - M54.17) 06/11/2023 Other I, Marzena Queen carmelo, am serving as a scribe to document services personally performed by Juan King MD, based upon my observations and the provider's statements to me. All documentation has been reviewed by the aforementioned doctor prior to being entered into the official medical record. I, Juan King MD attest that the above named individual is acting in scribe capacity, has observed my performance of the services and has documented them in accordance with my direction. The documentation recorded by the scribe accurately reflects the service I personally performed and the decisions made by me. Thank you very much Tricia Raymond DO for kindly referring Terry to our practice. It is a pleasure to participate in his care. Please feel free to contact me with any questions or concerns. PLAN OF TREATMENT No Information Insurance Providers Payer Name Payer Address Payer Phone Subscriber Number Group Number Insured Name Patient Relationship to Insured Coverage Start Date Coverage End Date [facility] [employer] [address] [address] [place] [address] [phone] [id number] Terry Ceron Self - patient is the insured 0 Medicare Part B [employer] [address] [place] [address] [id number] Jayna Ceronig Self - patient is the insured MEDICAL (GENERAL) HISTORY Medical History History ICD Code Type 2 diabetes depression high cholesterol sleep apnea hearing loss vision loss brain tumor (suprasellar meningioma) s/p radiation treatment pituitary compromise d/t brain tumor Surgical History Surgery Date(Month/Year) tonsillectomy 1952
--- OUTSIDE RECORDS SUMMARY | 2024-01-09 07:35 | XMS_ITS ---
Author Name Unknown Organization [facility] Address [address] [place] [address] Care Team Providers Care Catalytic Converter Operator Helper Name Role Phone Unavailable Unavailable Unavailable Surgery Details Not on file Complications Check Surgery Details section. Procedure Estimated Blood Loss Check Surgery Details section. Procedure Findings Check Surgery Details section. Procedure Specimens Taken Check Surgery Details section.
--- OUTSIDE RECORDS SUMMARY | 2024-01-09 07:35 | XMS_ITS | Encounter Summary ---
Author Name Unknown Organization [facility] Address [address] [place] [address] Care Team Providers Care Vulcan Crewmember Name Role Phone Elsewhere, Pcp Primary Care Provider Unavailabl e Reason for Referral * Outpatient (Routine) - Authorized Specialty Diagnoses / Procedures Referred By Contac t Referred To Contact Radiation Oncology Elise Rizvi APRN, C.N.P., D.N.P. [address] [place] [address] [facility] Region Referral ID Status Reason Start Date Expiration Date V isits Requested Visits Authorized [id number] Authorized 01/10/2023 01/09/2026 1 1 Scheduling Instructions A few days after MRI brain at [facility]. Please obtain images and report. E MACHINIST * Outpatient (Routine) - Closed Specialty Diagnoses / Procedures Referred By Contac t Referred To Contact Radiation Oncology Lisette Benites P.A.-C., M.S. [address] [place] [address] [facility] Region Referral ID Status Reason Start Date Expiration Date Visits Re quested Visits Authorized [id number] Closed 01/14/2022 01/14/2023 1 1 Scheduling Instructions Brain MRI completed prior at [facility] E MACHINIST Reason for Visit * Outpatient (Routine) - Closed Specialty Diagnoses / Procedures Referred By Kaushik villar Referred To Contact Radiation Oncology Lisette Benites P.A.-C., M.S. [address] [place] [address] [facility] Region Referral ID Status Reason Start Date Expiration Date Visits Re quested Visits Authorized [id number] Closed 01/14/2022 01/14/2023 1 1 Encounter Details Date Type Department Care Team (Latest Contact Info) Description 01/10/2023 2:28 PM LATHE MACHINIST - 01/17/2023 3:20 PM LATHE MACHINIST Hospital Encounter Department of Radiation Oncology in [place], [place] [address] [place] [phone] Donovan Betts M.D. [address] [place] [phone] Meningioma Brain (HCC) (Primary Dx) Social History Tobacco Use Types Packs/Day Years [...] often do you attend chur ch or adventism services? Never 10/11/2022 Do you belong to any clubs o r organizations such as lutheran groups, unions, fraternal or athletic groups, or [...] and heating? Not hard at all 10/11/2022 [facility] Occup[facility] ional Health - Occupational Stress [...] PM CDT documented as of this encounter Last Filed Vital Signs Vital Sign Reading Time Taken Comments Blood Pressure 114/65 01/10/2023 3:14 PM LATHE MACHINIST Pulse 72 01/10/2023 3:14 PM LATHE MACHINIST Temperature 36.3 ??C (97.3 ??F) 01/10/2023 3:14 PM CS T Respiratory Rate - - Oxygen Saturation - - Inhaled Oxygen Concentration - - Weight 102 kg (225 lb 1.4 oz) 01/10/2023 3:14 PM LATHE MACHINIST Height - - Body Mass Index 31.13 10/15/2022 11:19 AM LATHE MACHINIST documented in this encounter Medications at Time of Discharge Medication Sig Dispensed Refills Start Date End Date Accu-Chek Guide test strips strips USE 1 STRIP TO CHECK GLUCOSE ONCE DAILY DIRECTED 0 11/27/2020 albuterol (PROVENTIL HFA,VENTOLIN HFA) 90 mcg/actuation inhaler Inhale 1-2 puffs as needed. 0 01/08/2018 atorvastatin (LIPITOR) 40 mg tablet TAKE 1 TABLET BY MOUTH ONCE DAILY WITH EVENING MEAL 0 11/09/2020 blood-glucose meter misc daily. 0 08/23/2020 citalopram (CeleXA) 20 mg tablet Take 20 mg by mouth daily. 0 10/20/2020 dexamethasone (DECADRON) 4 mg/mL injection Inject 1 mL intramuscularly as directed. 0 01/06/2018 glipiZIDE (GLUCOTROL XL) 2.5 mg 24 hr tablet Take 2.5 mg by mouth daily. 0 08/29/2022 lisinopril (PRINIVIL,ZESTRIL) 10 mg tablet Take 1 tablet by mouth daily. 0 10/29/2016 metFORMIN (GLUCOPHAGE) 500 mg tablet Take 500 mg by mouth daily with breakfast. 0 09/13/2020 hydrocortisone (CORTEF) 10 mg tablet TAKE ONE-HALF TO ONE AND ONE HALF TABLETS TWICE DAILY. TAKE TWO DAILY DIRECTED. TAKE ONE AND ONE-HALF IN MORNING AND ONE-HALF IN AFTERNOON 400 tablet 3 11/26/2021 02/11/2023 levothyroxine (SYNTHROID, LEVOTHROID) 75 mcg tablet Take 1 tablet (75 mcg total) by mouth daily. 90 tablet 3 10/30/2022 12/10/2023 testosterone (ANDROGEL) 20.25 mg/1.25 g actuation (1.62%) gelIndications:Mass Pituitary (HCC) PLACE 1 ACT ON THE SKIN DAILY 75 g 2 12/17/2022 06/17/2023 documented as of this encounter Progress Notes * Elise Rizvi APRN, C.N.P., D.N.P. - 01/10/2023 3:00 PM CST SUBJECTIVE DIAGNOSIS 1. Meningioma Brain (HCC) SUPERVISED BY: Donovan Betts M.D. ([id number]) HISTORY OF PRESENT ILLNESS Mr. Terry Ceron is a 72 y.o. 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 He completed intensity modulated radiotherapy to a dose of 5404 cGy in 28 fractions on January 20, 2017. He returns for follow-up 6 years out from radiation treatment. His oncologic history is as follows: 1. End 2013 through the spring: Patient experienced an approximately 50 pound weight loss and progressive upper extremity weakness. 2. January 2015: Patient developed right shoulder pain and weakness and an MRI of the right shoulder revealed atrophy. 3. December 2015: EMG was normal. 4. April 2016: Patient had a consultation with Dr. Ho at [facility]. Statins were discontinued without much improvement in his symptoms. He was also experiencing progressive fatigue at this time. 5. October 29, 2016: Initial presentation to [facility] in consultation with Dr. Raciel Garcia inNeurology. Dr. Garcia noted bilateral upper extremity weakness and atrophy. Neurologic exam was otherwise normal. TSH was 3.3, total testosterone was low at 29 (normal range 240-950). 6. October 30, 2016: MRI of the brain revealed a sellar and suprasellar soft tissue mass with extension into bilateral cavernous sinuses on the left more so than the right. 7. November 01, 2016: Repeat MRI of the brain with contrast confirmed that the planum iaoqhwscumf-exzreitjkcr-efcsld mass with extension into the cavernous sinuses was most compatible with a meningioma. 8. November 05, 2016: Prolactin was elevated at 26.5 (normal 4.0-15.2). A.M. cortisol was low at 2.8 (range 7-25). 9. November 07, 2016: Consultation with Dr. Fontana in Neurosurgery who noted the patient likely had a meningioma spreading along the planum sphenoidale. He recommend radiotherapy rather than surgical resection. CT scan of the brain showed that the irregular mass involving the planum sphenoidale and suprasellar cistern had calcifications within the lesion further supporting the diagnosis of meningioma. 10. November 08, 2016: Consultation with Dr. Melara in Endocrinology. IGF1 was normal at 37 (32-2009). LH was inappropriately normal at 2.3 (normal at 1.8-8.6) and FSH was also inappropriatelynormal at 1.8 (1.0-18). The patient was started on hydrocortisone 15 in the morning and 10 mg in the afternoon. 11. November 11, 2016: Consultation with Dr. Davalos who recommended photon radiotherapy over proton radiotherapy because of close proximity to the optic chiasm and nerves. Patient also had follow-up withDr. Melara and was started on testosterone gel replacement and levothyroxine. 12. December 12, 2016 through January 20, 2017: Patient treated with intensity modulated radiotherapy to the parasellar/suprasellar meningioma to a dose of 5404 cGy in 28 fractions as a simultaneous integrated boost to the areas not adjacent to the optic structures with areas adjacent to the optic apparatus receiving 5040 cGy in 28 fractions. 13. March 18, 2017: MRI of the brain demonstrated a 3.6 x 3.2 x 1.8 cm enhancing mass within and expanding the sella turcica, extending to each cavernous sinus (left greater than right), extending into the suprasellar cistern (without mass effect upon the optic chiasm pre-chiasmatic optic nerves), extending along the planum sphenoidale and into left optic canal consistent with patient's given history of meningioma in this location. Scattered areas of punctate white matter T2 hyperintensity are nonspecific, but likely reflect mild microangiopathic change. No intracranial hemorrhage or acute orsubacute infarction. [facility] review confirmed that the mass was stable in comparison to his pre- radiotherapy imaging. 14. June 23, 2017: MRI of the brain demonstrated a 3.5 x 3.3 x 1.7 cm unchanged enhancing mass within and filling/expanding the sella turcica, extending to each cavernous sinus (left greater than right), extending into the suprasellar cistern without mass effect upon the optic chiasm prechiasmatic optic nerves, extending along the planum sphenoidale and into the left optic canal consistent with patient's given history of meningioma in this location. Scattered areas of punctate white matter T2 hyperintensity are nonspecific. No intracranial hemorrhage or acute or subacute infarction. [facility] review confirmed stable appearance of enhancing mass with no significant interval change. 15. November 11, 2017: MRI of the brain demonstrated a 2.9 x 2.5 x 1.5 cm, unchanged enhancing masswithin and filling/expanding the sella turcica, extending into each cavernous sinus (left greater than right), extending into the suprasellar cistern (without mass effect upon the optic chiasm or optic tracts), extending along the planum sphenoidale and into the left optic canal. Unchanged scattered areas of punctate white matter T2 hyperintensity. No intracranial hemorrhage or acute or subacute infarction. 16. May 13, 2018: MRI of the brain done at [facility] revealed a stable meningioma of thesella, left orbital apex, and planum sphenoidale. It measured 2.9 cm in maximal dimension. 17. November 30, 2018: MRI of the brain done [facility] revealed a largely stable meningiomaof the left orbital apex, sella and planum sphenoidale; however the left planum sphenoidale was slightly/1 mm thicker than previous studies. [facility] review concurred. 18. June 08, 2019: MRI of the brain done at [facility] revealed a stable meningioma of theleft orbital apex, sella, and planum sphenoidale. [facility] review noted that the lesion continues to measure approximately 1.5 cm superior to inferior by 1.5 cm anterior to posterior. There was a new central area of nonenhancing signal abnormality within the inferior aspect of the tumor which could represent sclerosis. Tumor extension along the tuberculum sella and planum sphenoidale is unchanged since November 2018. There remains minimal suprasellar extension without significant mass effect upon the optic apparatus and minimal encroachment upon the prechiasmatic optic nerves. 19. January 03, 2020: MRI of the brain done at [facility] again revealed a stable meningioma of the left orbital apex, sella, and planum sphenoidale. 20. January 04, 2021: MRI of the brain at [facility] demonstrated a stable uniformly enhancing soft tissue mass filling the pituitary fossa and mildly enlarging it, consistent with a history of previously treated meningioma. No sign of any suprasellar extension of meningioma. Stable extension of enhancing meningioma into the left cavernous sinus encasing the left internal carotid artery, along the left optic nerve extending to the orbital apex, and along the dural surfaces anterior and posterior to the pituitary fossa with no sign of mass effect. 21. January 10, 2022: MRI of the brain at [facility] demonstrated an infiltrative appearing mass expanding the sella and extending laterally into the left cavernous sinus, posteriorly into the upper clivus, and anteriorly along the planum sphenoidale consistent with the given diagnosis ofmeningioma. This partially enveloped the cavernous left internal carotid artery, but without significant luminal constriction. The pituitary gland was not discretely separable from the tumor. These findings were stable compared to 2019 and 2020. 22. 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 No optic chiasm impingement. No definite encasement of or narrowing of the ICAs. Stable mild parenchymal volume loss. No acute intracranial abnormality. INTERVAL HISTORY The patient was seen and examined today with Dr. Betts. The patient reports doing well overall. He denies any symptoms at this time. He denies headaches and overall pain. He denies changes to hearing and vision. He denies nausea and vomiting, and reports stable weight. He denies any seizures, weakness in arms or legs, numbness or tingling, loss of bowelor bladder function, or balance concerns. His ECOG performance status is 0. REVIEW OF SYSTEMS Review of systems was negative except as documented above. PATIENT REPORTED SYMPTOM SCREEN FATIGUE (Scale: 0 = no fatigue; 10 = worst fatigue you can imagine): 0 PAIN (Scale: 0 = no pain; 10 = worst pain you can imagine): 0 OVERALL QUALITY OF LIFE (Scale: 0 = as bad as can be; 10 = as good as can be): 10 OBJECTIVE BP 114/65 (BP Location: Right arm, Patient Position: Sitting, Cuff Size: Regular) Pulse 72 Temp36.3 ??C (Temporal) Wt 102 kg BMI 31.13 kg/m?? PHYSICAL EXAM General: Patient is alert and oriented in no apparent distress. ENT: Pupils equal, round, and reactive to light. Sclera anicteric. Visual john intact. Oral cavity inspection reveals moist mucous membranes and no visible lesions. Neck: Supple. Lymph: No palpable cervical, supraclavicular, infraclavicular, or axillary adenopathy. Lungs: Clear to auscultation bilaterally. Heart: Regular rate and rhythm. Normal S1 and S2. Neurologic: CN II-XII tested and intact. Strength is 5/5, normal and symmetric in both upper and lower extremities. Sensation is intact to light touch. Gait is normal. Deep tendon Reflexes 2+. Rapid hand movement and hand coordination intact. ASSESSMENT / PLAN 1. Sellar/suprasellar meningioma, status post definitive radiotherapy completed on January 20, 2017 2. Anterior hypopituitarism, on replacement 3. Possible 1 mm increase in size of the sellar/suprasellar meningioma at the left planum sphenoidale on MRI from November 30, 2018; stable on subsequent MRIs It was a pleasure to meet with Terry today. He is doing well overall. He is not having any neurological symptoms at this time. He continues following with endocrinology on a yearly basis for hormone treatment. He last saw them September 2022. We will see Mr. Terry Ceron in a follow-up visit in1 year with a MRI brain at [facility] a few days prior. Patient seen in collaboration withDr. Betts, please review his attestation for additional information. The patient was asked to contact us sooner with questions or concerns. He verbally expressed his understanding of the plan. EDUCATION Ready to learn, no apparent learning barriers were identified; learning preferences include listening. Explained diagnosis and treatment plan; patient expressed understanding of the content. I personally spent 25 minutes in care of the patient today. Time includes both non face to face andface to face patient care. Signed by: Elise Rizvi APRN, C.NKarlos, D.N.P. 01/10/2023 3:42 PM LATHE MACHINIST [facility] [address] [place] [address] E MACHINIST Associated attestation - Donovan Betts M.D. - 01/17/2023 3:18 PM LATHE MACHINIST I saw and evaluated the patient and participated in the bazan portions of the service. I reviewed thedocumentation of Elise Rizvi C.N.P. and agree with the findings and plan. The patient appearswell on exam. He is doing well now 5 years out from completion of definitive radiotherapy for a sellar/suprasellar meningioma that was completed on January 20, 2017. I reviewed his MRI from 2022 which is stable. He is asymptomatic with no neurologic issues. I will see him again in 1 year with a repeat MRI of the brain a few days prior at [facility]. He knows to contact me with any new neurologic symptoms. He verbalized satisfaction with this plan. I have spent 10 minutes caring for this patient including blgh-ur-qsyj and rji-okwr-nt-face time. Signed by: Donovan Betts M.D. 01/17/23 3:18 PM LATHE MACHINIST [facility] [place] documented in this encounter Miscellaneous Notes * Addendum Note - Philipp Neal - 01/10/2023 3:00 PM CSTEncounter addended by: Philipp Neal on: 01/20/2023 8:45 AM Actions taken: Letter saved E MACHINIST * Addendum Note - Philipp Neal - 01/10/2023 3:00 PM CSTEncounter addended by: Philipp Neal on: 01/20/2023 9:17 AM Actions taken: Letter saved E MACHINIST * Addendum Note - Philipp Neal - 01/10/2023 3:00 PM CSTEncounter addended by: Philipp Neal on: 01/20/2023 9:24 AM Actions taken: Letter saved E MACHINIST documented in this encounter Plan of Treatment Upcoming Encounters Date Type Department Care Team (Latest Contact Info) Description 01/12/2024 10:00 AM LATHE MACHINIST Clinical Communication Virtual Review in [place], [place] [address] [place] [address] 01/15/2024 11:30 AM LATHE MACHINIST Appointment Department of Radiation Oncology in [address] [phone] Donovan Betts M.D. [address] [place] [address] Scheduled Referrals Name Type Priority Associated Diagnoses Order Schedule Radiation Oncology office visit (clinic) Outpatient Referral Routine Once for 1 Occurrences starting 01/10/2023 until 01/10/2023 Radiation Oncology office visit (clinic) Outpatient Referral Routine Expected: (Approximate), Expires: 04/09/2024 documented as of this encounter Visit Diagnoses Diagnosis Meningioma Brain (HCC)- Primary documented in this encounter Additional Health Concerns Assessment Noted Time PHQ-9 Depression Total Score: 1 12/24/19 17 3:11 PM LATHE MACHINIST documented as of this encounter Care Teams Vulcan Crewmember Relationship Specialty Start Date End Date Elsewhere, Pcp PCP - General Internal Medicine 10/14/22 documented as of this encounter
--- OUTSIDE RECORDS SUMMARY | 2024-01-09 07:35 | XMS_ITS | Encounter Summary ---
Author Name Unknown Organization [facility] Address [address] [place] [address] Care Team Providers Care Smokehouse Worker Name Role Phone Elsewhere, Pcp Primary Care Provider Unavailabl e Reason for Visit * Reason Comments Med Refill Encounter Details Date Type Department Care Team ([facility] st Contact Info) Description 02/09/2023 Refill Division of Endocrinology in [place], [place] [address] [place] [phone] Shawna Somers M.D. [address] [place] [phone] Med Refill Social History Tobacco Use Types [...] often do you attend chur ch or anglican services? Never 10/11/2022 Do you belong to any clubs o r organizations such as presybeterian groups, unions, fraternal or athletic groups, or [...] and heating? Not hard at all 10/11/2022 [facility] of Occupat ionar Health - Occupational Stress Questionnaire Answer Date [...] place to sleep or slept in a nursing home (including now)? No 10/11/2022 Nutrition Answer Date [...] (Latest Contact Info) Description 01/12/2024 10:00 AM WWE WRESTLER Clinical Communication Virtual Review in [place], [place] [address] [place] [address] 01/15/2024 11:30 AM WWE WRESTLER Appointment Department of Radiation Oncology in [place] [address] [place] [address] Donovan Betts M.D. [address] [place] [address] documented as of this encounter Visit Diagnoses Not on filedocumented in this encounter Additional Health Concerns Assessment Noted Time PHQ-9 Depression Total Score: 1 12/24/19 17 3:11 PM WWE WRESTLER documented as of this encounter Care Teams Smokehouse Worker Relationship Specialty Start Date End Date Elsewhere, Pcp PCP - General Internal Medicine 10/14/22 documented as of this encounter
--- OUTSIDE RECORDS SUMMARY | 2024-01-09 07:35 | XMS_ITS | Clinical Summary ---
Author Name Unknown Organization [facility] Address [place], [place] [address] Care Team Providers Care Acute Care Occupational Therapist Name Role Phone Hal Duran MD Primary Care Provider [phone] Allergies No known active allergies Medications Medication Sig Dispensed Refills Start Date End Date Status albuterol HFA (PROAIR HFA) 90 mcg/actuation inhalerIndications:RA D (reactive airway disease) with wheezing, mild persistent, uncomplicated Inhale 1-2 Puffs by mouth 4 times daily if needed. 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 90 tablet 1 07/28/2020 Active hydrocortisone (CORTEF) 10 mg tablet Take 20-30 mg by mouth once daily with a meal. Takes 20 mg daily usually, takes 30 mg daily if it will be a stressful day 0 Active atorvastatin (LIPITOR) 40 mg tabletIndications:Hyp ercholesterolemia Take 1 Tablet (40 mg) by mouth once daily with evening meal. 90 Tablet 1 08/05/2023 Active citalopram (CELEXA) 20 mg tabletIndications:Dep ression, unspecified depression type Take 1 Tablet (20 mg) by mouth once daily. 90 Tablet 1 08/05/2023 Active glipiZIDE extended-release (GLUCOTROL XL) 2.5 mg Extended-Release tabletIndications:Kiara betes mellitus without complication (HC) Take 1 Tablet (2.5 mg) by mouth once daily before a meal. 90 Tablet 1 08/05/2023 Active lisinopriL (PRINIVIL; ZESTRIL) 10 mg tabletIndications:Ess ential hypertension Take 1 Tablet (10 mg) by mouth once daily in the evening. 90 Tablet 1 08/05/2023 Active metFORMIN (GLUCOPHAGE) 500 mg tabletIndications:Kiara betes mellitus without complication (HC) Take 1 Tablet (500 mg) by mouth once daily with a meal. 90 Tablet 1 08/05/2023 Active testosterone (ANDROGEL) 20.25 mg/1.25 gram (1.62 %) glpm transdermal gel Apply 1 pump on dry, clean, hairless skin every morning. To clean, dry, intact skin of the shoulders and upper arms. Do NOT apply to any other parts of the body. 0 Active Active Problems Problem Noted Date Diagnosed Date Recurrent major depressive disorder, in partial remission 10/23/2023 Lumbar back pain 08/18/2023 Spinal stenosis of lumbar re gion with neurogenic claudication 07/25/2023 Spinal stenosis of lumbar region with radiculopa thy 07/25/2023 Type 2 diabetes mellitus wit hout complication, without long-term current use of insulin 07/25/2023 Bradycardia 07/25/2023 Radicular syndrome of right leg 06/05/2023 Numbness and tingling of right leg 06/05/2023 Other idiopathic scoliosis, thoracolumbar region 05/01/2018 Meningioma 12/12/2016 Overview: Suprasellar, completed radiotherapy Dec 2016, tumor stable - q 6 month MRI [place] 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, on replacement - levothyroxine, testosterone, hydrocortisone DARRELL on CPAP 02/09/2016 Overview: Moderate to severe Essential hypertension 09/26/2014 Hypercholesterolemia 09/26/2014 Overview: - has been on lipitor in past which was too expensive 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 Overview: Uses hearing aids when in large groups Resolved Problems Problem Noted Date Diagnosed Date Resolved Date Acute right-sided low back p ain with right-sided sciatica 06/05/2023 08/18/2023 Lumbar radiculopathy, acute 06/05/2023 08/18/2023 Generalized weakness 01/27/2016 020 Overview: Unrevealing lab eval crp elevated then normal on recheck Normal EMG Shoulder pain, right 02/10/2015 020 Rotator cuff impingement syn drome of right shoulder 02/10/2015 04/04/2020 Femoral neuropathy of both lower extremities 4 04/04/2020 Overview: Has been on gabapentin, reduced pain since retiring, now off meds Encounters Date Type Department Care Team Description 10/23/2023 9:30 AM SKOOG OPERATOR Office Visit [facility] [[email or web address]] [address] [place] [id number] Roger, Hal De La Torre MD Medicare ANNUAL (subsequent) Visit 10/23/2023 Travel 10/20/2023 Travel from Last 3 Months Immunizations Name Administration Dates Next Due Amb Influenza, Inactivated A IIV4 (Age 65+ Years) Preserv Free 08/02/2020 COVID-19 Vaccine Spikevax (M oderna 50mcg/0.5mL) 12YO+ 1194-2073 Formula PF 09/18/2023 COVID-19 vaccine (HomeWellness-Bio NTech 30mcg/0.3mL) 12YO+ BIVALENT PF, MDV 05/09/2023,08/29/2022 COVID-19 vaccine (Pfizer-Bio NTech 30mcg/0.3mL) 12YO+ DIPAK-SUCROSE PF, MDV 06/27/2022 COVID-19 vaccine (HomeWellness-Bio NTech 30mcg/0.3mL) PF, MDV 08/20/2021,02/13/2021,01/23/2021 Influenza, High-dose Inactivated 08/26/2016,100 07/2015,09/26/2014 Influenza, Inactivated AIIV4 (Age 65+ Years) Preserv Free 09/18/2023,08/20/2022,10/03/2021 Influenza, Inactivated IIV3 (Age 65+ Years) Preserv Free 08/10/2019,09/10/2018,08/11/2017 Pneumococcal Conj 20-valent (Prevnar 20) 08/29/2022 Pneumococcal Poly,23-Valent (Pneumovax) 09/26/2014 Pneumococcal conj 13-Valent (Prevnar 13) 10/27/2015 Tdap 09/28/2017 Zoster (Shingrix-RZV, recombinant) 05/26/2019,,01/05/2018 Zoster (Zostavax-ZVL, live) 06/09/2012 Zoster, Unspecified Formulation 10/29/2016(Defer red: Patient Refused) Family History Medical History Relation Name Comments Good Health Brother Heart Disease Father AAA - 72 Cancer Mother bladder - d 86 Diabetes Mother type 2 Good Health Sister Relation Name Status Comments Brother Alive Father Mother Sister Alive Social History Tobacco Use Types Packs/Day Years Used Date Smoking Tobacco: Former Cigarettes 0.5 7 Smokeless Tobacco: Never Tobacco Cessation:Counseling Given: Not Answered Comments:5 yrs social smoker in 1970s, 2007- Alcohol Use Standard Drinks/Week Comments Yes 0 (1 standard drink = 0.6 oz pur e alcohol) 1-2 a week PHQ-2 Answer Date Recorded PHQ-2 TOTAL SCORE 0 10/23/2023 Social Connections Answer Date Recorded Frequency of Communication with Friends and Fami ly 0 04/15/2023 Financial Resource Strain Answer Date R ecorded Difficulty of Paying Living Expenses 3 04/15/2023 Difficulty of Paying Living Expenses Not on file 04/15/2023 Food Insecurity Answer Date Recorded Worried About Running Out of Food in the Last Ye ar 1 04/15/2023 Transportation Needs Answer Date Record ed Lack of Transportation (Medical) 1 04/15/2023 Housing Stability Answer Date Recorded Unable to Pay for Housing in the Last Year 1 04/15/2023 Sex and Gender Information Value Date Recorded Sex Assigned at Not on file Gender Identity Male 08/01/2020 10:05 AM CDT Sexual Orientation Straight 08/01/2020 10 :05 AM CDT Obstetrics History Last Filed Vital Signs Vital Sign Reading Time Taken Comments Blood Pressure 132/86 10/23/2023 9:38 AM SKOOG OPERATOR Pulse 76 10/23/2023 9:38 AM SKOOG OPERATOR Temperature 36.4 ??C (97.5 ??F) 08/20/2023 7:27 AM CD T Respiratory Rate 18 08/20/2023 7:27 AM CDT Oxygen Saturation 92% 08/20/2023 7:27 AM CDT Inhaled Oxygen Concentration - - Weight 100.2 kg (221 lb) 10/23/2023 9:38 AM SKOOG OPERATOR Height 179.7 cm (5' 10.75) 10/23/2023 9:[address] Body Mass Index 31.04 10/23/2023 9:38 AM SKOOG OPERATOR Plan of Treatment Health Maintenance Due Date Last Done Comments BMI (ht and wt on same day) for age 18+ 10/23/2024 10/23/2023, 06/05/2023, 08/29/2022, Additional history exists Depression screening for age 12+ 10/23/2024 10/23/2023, 08/29/2022, 08/28/2021, Additional history exists Medicare Wellness for age 65+ 10/23/2024, 08/29/2022, 08/27/2021, Additional history exists Lipids for age 45-75 08/27/2026 08/27/2021, 07/25/2020, 07/25/2020, Additional history exists Tetanus booster 09/28/2027 09/28/2017, 10/24 (Completed outside of [facility]) Colonoscopy through age 75 03/27/2029 03/27/2022, Tdap Completed 09/28/2017, 10/24 (Completed outside of [facility]) Zoster (shingles) series for age 50+ Completed 05/26/2019, 03/21/2019, 01/05/2018, Additional history exists Hepatitis C screening for ag e 18-79 Completed 07/25/2020 Pneumococcal series for age 65+ Completed 08/29/2022, 10/27/2015, 09/26/2014 COVID-19 vaccine series Completed 09/18/20 23, 05/09/2023, 08/29/2022, Additional history exists Influenza for age 65+ Completed 09/18/2023 , 08/20/2022, 10/03/2021, Additional history exists Procedures Procedure Name Priority Date/Time Associated Diagnosis Comments URINE ALBUMIN TO CREATININE RATIO, RANDOM Routine 10/23/2023 10:25 AM SKOOG OPERATOR Type 2 diabetes mellitus without complication, without long-term current use of insulin (HC) HEMOGLOBIN A1C Routine 10/23/2023 10:15 AM SKOOG OPERATOR Type 2 diabetes mellitus without complication, without long-term current use of insulin (HC) from Last 3 Months Results * URINE ALBUMIN TO CREATININE RATIO, RANDOM (10/23/2023 10:25 AM SKOOG OPERATOR) ALB RAND URINE 14.9 mg/L 10/23/2023 3:24 PM SKOOG OPERATOR [facility] CREATININE,URIN E 1.57 g/L 10/23/2023 3:24 PM SKOOG OPERATOR [facility] ALBUMIN TO CREATININE RATIO,RAND UR 9.5 <30.0 mg/g creat 10/23/2023 3:24 PM SKOOG OPERATOR [facility] Urine URINE SPECIMEN / Unknown Non-Blood / Unknown 10/23/2023 10:25 AM SKOOG OPERATOR 10/23/2023 10:25 AM SKOOG OPERATOR Narrative [facility] - 10/23/2023 3:24 PM SKOOG OPERATOR If Albumin to Creatinine Ratio is elevated, consider the following: ? Elevations seen with incipient nephropathy associated ?? with diabetes mellitus or hypertension. Stress, exercise,hematuria, ?? and urinary tract infection may also produce elevated results. If clinically indicated, confirm with ?24 Hour Albumin to Creatinine Ratio. ?? Hal De La Torre Ea, MD URINE [facility] [address] [place] [address], * (ABNORMAL) HEMOGLOBIN A1C MONITORING (POCT) (10/23/2023 10:15 AM SKOOG OPERATOR) HEMOGLOBIN A1C MONITORING (POCT) 7.6(H) <=6.4 % 10/23/2023 10:27 AM SKOOG OPERATOR [facility] Blood BLOOD SPECIMEN / Unknown Venipuncture / Unknown 10/23/2023 10:15 AM SKOOG OPERATOR 10/23/2023 10:18 AM SKOOG OPERATOR Narrative [facility] - 10/23/2023 10:27 AM SKOOG OPERATOR ? (<=6.9%) ? Indicates good control ? (7.0% to 7.9%) ? Indicates fair control ? (>=8.0%) ? Indicates poor control ?? NOTE: ??These thresholds are guidelines and ?individual targets may vary. Falsely low levels may be seen with: Recent Transfusion, Recent Significant Blood Loss, Hemolytic Diseases, or Falsely elevated levels may be seen with: Untreated Anemias, Splenectomy ? Elise De La Cruz MD CHEMISTRY [facility] [address] [address], from Last 3 Months Advance Directives Latest Code Status on File Code Status Date Activated Date Inactivated Comments Full Code 08/18/2023 9:27 PM 08/20/2023 2:20 PM Question Answer Comments Code Status Discussion: Reviewed Preferences Code Status History Code Status Date Activated Date Inactivated Comments Full Code 07/25/2023 2:09 AM 07/30/2023 4:41 PM Question Answer Comments Code Status Discussion: Reviewed Preferences Care Teams Acute Care Occupational Therapist Relationship Specialty Start Date End Date Hal Duran MD [address] [address] PCP - General Family Practice 10/24/23
--- OUTSIDE RECORDS SUMMARY | 2024-01-09 07:35 | XMS_ITS | Encounter Summary ---
Author Name Unknown Organization [facility] Address [address] [place] [address] Care Team Providers Care Director Credit Risk Name Role Phone Elsewhere, Pcp Primary Care Provider Unavailabl e Encounter Details Date Type Department Care Team (Late st Contact Info) Description 11/07/2023 Clinical Communication Department of Radiation Oncology in [place], [place] [address] [place] [phone] Donovan Betts M.D. [address] [place] [address] Social History Tobacco Use Types Packs/Day Years [...] often do you attend chur ch or lutheran services? Never 10/11/2022 Do you belong to any clubs o r organizations such as mormon groups, unions, fraternal or athletic groups, or [...] and heating? Not hard at all 10/11/2022 [facility] Stress [...] place to sleep or slept in a group home (including now)? No 10/11/2022 Nutrition Answer [...] (Latest Contact Info) Description 01/12/2024 10:00 AM HAWK MISSILE SYSTEM CREWMEMBER Clinical Communication Virtual Review in [place], [place] [address] [place] [address] 01/15/2024 11:30 AM HA[employer] MISSI[employer] SYSTEM CREWMEMBER Appointment Department of Radiation Oncology in [place] [id number] [place] [address] Donovan Betts M.D. [address] [place] [phone] documented as of this encounter Visit Diagnoses Not on filedocumented in this encounter Additional Health Concerns Assessment Noted Time PHQ-9 Depression Total Score: 1 12/24/19 17 3:11 PM HAWK MISSILE SYSTEM CREWMEMBER documented as of this encounter Care Teams Director Credit Risk Relationship Specialty Start Date End Date Elsewhere, Pcp PCP - General Internal Medicine 10/14/22 documented as of this encounter
== END 2024-01-09 07:28 | disposition home or self-care (01) ==
LOC: MRI 07:32
PROVIDERS: Visit Provider Nurse Practitioner
DX: D32.0 Benign neoplasm of cerebral meninges (principal)
CPT/HCPCS: 70553; A9575

== ENCOUNTER 2025-01-03 09:00 | Outpatient (CLI) | payer MEDICARE, SELFPAY ==
--- NOTE | 2025-01-03 09:15 | CRLHL7_ITS ---
For Patients: As a result of the Century Cures Act, medical imaging exams and procedure reports are released immediately into your electronic medical record. You may view this report before your referring provider. If you have questions, please contact your health care provider. INDICATION: Meningioma follow-up. TECHNIQUE: Brain MRI with and without contrast. 19 cc gadolinium based contrast administered. COMPARISON: Brain MRI from 01/06/2023. FINDINGS: Re-demonstration of the residual enhancing meningioma involving the posterior planum sphenoidale, dorsum sella, sella turcica, anterior paraclinoid region, left-sided cavernous sinus and left-sided Meckel`s cave, consistent with a meningioma. Enhancing material extends to the orbital apex, with partial encasement of the left prechiasmatic intracranial optic nerve. The lesion continues to encase the left cavernous internal carotid artery, although the flow void is maintained. [place] pituitary tissue not clearly visualized, although the infundibulum remains midline. No suprasellar mass effect upon the optic chiasm or 3rd ventricular floor. No acute infarct or hemorrhage. A few small foci of T2 hyperintensity throughout the supratentorial white matter are nonspecific, although most commonly reflect chronic small vessel ischemic changes. A small chronic lacunar infarct within the right posterior thalamus. Mild generalized parenchymal volume loss. No mass effect or herniation. No hydrocephalus or extra-axial collections. Posterior fossa is normal. All the major intracranial vascular structures demonstrate normal flow-related signal. Pseudophakia. No calvarial or skull base marrow signal abnormality. A left petrous apex effusion. No obstructive sinus disease. No extracranial soft tissue findings. IMPRESSION: 1. Stable residual meningioma within the sellar/suprasellar region and central skull base. No new mass effect. 2. No acute ischemia. No other significant interval changes. Dictated by Raudel Zhou MD @ 01/03/2025 1:07:17 PM (Electronically Signed)
== END 2025-01-03 09:01 | disposition home or self-care (01) ==
LOC: MRI 09:01
PROVIDERS: Visit Provider Nurse Practitioner
DX: D32.0 Benign neoplasm of cerebral meninges (principal)
CPT/HCPCS: 70553; A9575